=== PATIENT | male | born 1965 | race Caucasian/White ===

== ENCOUNTER 2023-03-20 15:38 | Outpatient (AMB) | payer BC, SELFPAY ==
--- NOTE | 2023-03-20 15:39 | A.OFFVIS_ITS ---
Intake Vital Signs 03/20/23 15:40 Height 6 ft Weight 249 lb BMI 33.8 BP 126/68 Blood Pressure Location Rt brachial Position Sitting Pulse 56 Pulse Source Pulse Oximeter Pulse Oximetry (%) 95 Oxygen Delivery Method Room Air Intake Visit Reasons: Asthma Target Network Analyst Required: No Project Estimator: Project Estimator offered & declined Accompanied by: Spouse Allergies No Known Allergies [No Known Allergies*] Allergy (Unverified 03/20/23 15:44) Medication List - Last Reconciled 03/20/23 by Melany Cohen LPN albuterol sulfate 90 mcg/actuation 2 puffs inhalation Q6H PRN budesonide-formoterol 160-4.5 mcg/actuation (Symbicort) 2 puffs inhalation BID fluticasone propionate 50 mcg/actuation 1 spray intranasal DAILY levothyroxine 50 mcg PO DAILY sertraline 150 mg PO DAILY tamsulosin 0.4 mg PO DAILY HPI Asthma HPI Details John is a pleasant 57 year old male, never smoker, with underlying asthma, BEULAH on CPAP and nasal polyps. He was referred by PCP for pulmonary evaluation. He reports being suboptimally controlled on symbicort and albuterol MDI. He reports intermittent wheezing and dyspnea with moderate exertion. He denies cough or chest tightness. He denies any occupational exposures. He reports minimal seasonal allergies however reports mild to moderate eczema. He denies any pertinent family history. He does admit poor compliance with CPAP and has not followed up with sleep medicine in years. Last sleep study 2014. [facility] Social History (Updated 03/20/23 @ 15:46 by Melany Cohen LPN) Patient Tobacco Use Status: Never used Tobacco Smoked in Last 30 Days: No Review of Systems Const Denies chills, Denies excessive sweating, Denies fever(s), Denies headache(s) and Denies night sweats Eyes Denies dry eyes, Denies irritation and Denies itchy eyes ENT Reports Normal hearing present, Denies headache(s), Denies nasal congestion, Denies nasal discharge, Denies post nasal drip and Denies sore throat Card Denies chest pain, Denies chest pain at rest, Denies chest pain with activity, Denies claudication, Denies leg edema, Denies orthopnea and Denies paroxysmal nocturnal dyspnea Resp Denies chest congestion, Denies cough, Denies excessive phlegm production, Denies pain on inspiration, Denies pain with cough and Denies stridor Musc Denies myalgias Neuro Reports Normal hearing present and Denies headache(s) Endo Denies excessive sweating Kyle/Lymph Denies lymphadenopathy Aller/Immun Denies itchy eyes and Denies seasonal rhinorrhea Physical Exam Vital Signs: Last Vital Signs Pulse 56 03/20/23 15:40 BP 126/68 03/20/23 15:40 Pulse Ox 95 03/20/23 15:40 Oxygen Delivery Method Room Air 03/20/23 15:40 BMI result Body Mass Index 33.8 Const General: cooperative, healthy appearing, comfortable, no acute distress, well developed and alert Nutritional Appearance: obese Orientation/consciousness: patient oriented x3 Limitations: no limitations HEENT Head: Yes normal to inspection, Yes normocephalic and Yes atraumatic Ears: hearing grossly normal bilaterally and external ears normal Eyes General: appearance normal, both eyes and all related structures Eyelids: Yes eyelids normal Sclerae: sclerae normal EOM: EOMs intact bilaterally Neck Neck: Yes normal visual inspection and Yes no lymphadenopathy Lymphatic: no lymphadenopathy noted Chest Chest palpation & inspection: normal inspection of the chest Resp Effort & Inspection: normal respiratory effort, able to speak in complete sentences, no audible wheezes, no cough, no stridor, not tachypneic, no tripod positioning and no use of accessory muscles Auscultation: clear to auscultation bilaterally Cardio Jugular venous distension: no JVD Rate: regular rate Rhythm: regular rhythm Skin Other: warm, dry General skin exam: no rashes or lesions noted Neuro General: patient oriented x3 Cranial nerves: Yes Normal hearing present Cognition (Neuro): normal cognition Gait exam (Neuro): Normal gait present Extrem General: Yes normal to inspection, Yes capillary refill normal, Yes no clubbing, cyanosis or edema and Yes no pedal edema Psych Appearance: grossly normal and well kempt Speech and movement: Normal speech and movement present and Clear speech present Affect: normal affect Attitude: cooperative Thought process: Normal thought process present Thought content: Normal thought content present Insight: Good insight present (Psych) Judgement: Good judgement present (Psych) Assessment & Plan Assessment & Plan (1) Asthma: Code(s): J45.909 - Unspecified asthma, uncomplicated (2) Dyspnea: Code(s): R06.00 - Dyspnea, unspecified (3) Obstructive sleep apnea: Code(s): G47.33 - Obstructive sleep apnea (adult) (pediatric) (4) Central sleep apnea: Code(s): G47.31 - Primary central sleep apnea (5) Daytime somnolence: Code(s): R40.0 - Somnolence Plan John's symptoms are likely related to underlying asthma. Will send for PFT to thoroughly evaluate. Prior PFT from 2017 revealed normal spirometry, RV 126% and mildly decreased DLCO 69%. Patient reports difficulty with compliance using symbicort, will trial breo. Inhaler technique and importance of oral hygiene reviewed. Patient had prior sleep study suggestive of complex sleep apnea with both obstructive and central apneas, AHI of 28 from 2015. Will send for updated in lab sleep study. Will also send for CXR, for ongoing dyspnea with possible further evaluation with chest CT. All questions were answered and patient is in agreement of plan. Will follow up in 3 months to review response to Breo and results, or sooner if needed. Orders: Orders XR chest 2V Today R06.00 - Dyspnea, unspecified PFT pulmonary function test Today J45.909 - Unspecified asthma, uncomplicated RT PSG in-lab sleep study Today G47.31 - Primary central sleep apnea, G47.33 - Obstructive sleep apnea (adult) (pediatric), R40.0 - Somnolence Medications: New albuterol sulfate 90 mcg/actuation 2 puffs inhalation Q6H PRN 1 ea 3RF shortness of breath or wheezing fluticasone furoate-vilanterol 200-25 mcg/dose (Breo Ellipta) 1 inh inhalation DAILY 60 ea 3RF Coding Level of Care Code New Pt Level 4 (64765) Diagnoses Asthma J45.909 Dyspnea R06.00 Obstructive sleep apnea G47.33 Central sleep apnea G47.31 Daytime somnolence R40.0
[2023-03-20 15:40] VITALS: BP 126/68; PULSE 56; O2SAT 95; BMI 33.8
== END 2023-03-20 17:05 | disposition home or self-care (01) ==
PROVIDERS: PCP Internal Medicine; Visit Provider Nurse Practitioner Family
DX: J45.909 Unspecified asthma, uncomplicated (principal); R06.00 Dyspnea, unspecified; G47.33 Obstructive sleep apnea (adult) (pediatric); G47.31 Primary central sleep apnea; R40.0 Somnolence
CPT/HCPCS: 99204

== ENCOUNTER → 2023-03-20 15:38 | Outpatient (BNVA) | payer BC, SELFPAY | PROVIDERS: PCP Internal Medicine; Visit Provider Nurse Practitioner Family ==

== ENCOUNTER → 2023-04-05 20:30 | Outpatient (REF) | payer BC, SELFPAY | LOC: HO.SL 20:30 | PROVIDERS: PCP Internal Medicine; Visit Provider Nurse Practitioner Family | DX: G47.33 Obstructive sleep apnea (adult) (pediatric) (principal); G47.31 Primary central sleep apnea; R40.0 Somnolence | CPT/HCPCS: 95810 ==

== ENCOUNTER → 2023-04-05 23:08 | Outpatient (BNV) | payer BC, SELFPAY | PROVIDERS: PCP Internal Medicine; Visit Provider Internal Medicine | DX: G47.33 Obstructive sleep apnea (adult) (pediatric) (principal) | CPT/HCPCS: 95810 ==

== ENCOUNTER 2023-04-22 10:39 | Outpatient (REF) | payer BC, SELFPAY ==
--- NOTE | 2023-04-22 12:02 | PFT_ITS ---
Indication: Asthma Spirometry [FEV1 to FVC 79%; FEV1 3.45 L; FVC 4.39 L. No significant response to bronchodilators noted. Maximum voluntary ventilation 73% predicted] Lung Volumes [Total lung capacity 85% predicted with an expiratory reserve volume 48% predicted] Diffusion Capacity [DLCO 96% predicted] Comparisons [None] Interpretation [No obstructive nor restrictive ventilatory defects identified. No significant response to bronchodilators noted. Lung volumes are low normal likely secondary to elevated BMI. Diffusing capacity is within normal limits. If asthma is in the differential methacholine challenge may be helpful in assessing for her reactive airways otherwise clinical correlation warranted.] MTDD
== END 2023-04-22 10:40 | disposition home or self-care (01) ==
LOC: HO.RESP 10:39
PROVIDERS: PCP Internal Medicine; Visit Provider Nurse Practitioner Family
DX: J45.909 Unspecified asthma, uncomplicated (principal)
CPT/HCPCS: 94010; 94727; 94729

== ENCOUNTER → 2023-04-22 12:02 | Outpatient (BNV) | payer BC, SELFPAY | PROVIDERS: PCP Internal Medicine; Visit Provider Hospitalist | DX: J45.909 Unspecified asthma, uncomplicated (principal) | CPT/HCPCS: 94060; 94727; 94729 ==

== ENCOUNTER 2023-05-01 09:26 | Outpatient (AMB) | payer BC, SELFPAY ==
--- NOTE | 2023-05-01 09:27 | A.OFFVIS_ITS ---
Intake Intake Visit Reasons: asthma: f/u on results Learning And Development Officer Required: No Allergies No Known Allergies [No Known Allergies*] Allergy (Unverified 05/01/23 09:29) Medication List - Last Reconciled 05/01/23 by Melany Cohen LPN albuterol sulfate 90 mcg/actuation 2 puffs inhalation Q6H PRN fluticasone propionate 50 mcg/actuation 1 spray intranasal DAILY levothyroxine 50 mcg PO DAILY mometasone-formoterol 100-5 mcg/actuation (Dulera) 2 puffs inhalation BID sertraline 150 mg PO DAILY tamsulosin 0.4 mg PO DAILY HPI asthma: f/u on results 2 HPI0 Details John is a pleasant 57 year old male, never smoker, with underlying asthma, BEULAH on CPAP and nasal polyps. Today's visit is to discuss results of in lab sleep study and PFT. At the last visit, he was also started on Dulera for wheezing and dyspnea with minimal improvement in symptoms. Of note, he also reports persistent cough, nasal/chest congestion and occasional wheezing for the past 4-5 days. He reports fatigue and chills, denies fever or sick contacts. [facility] Social History (Updated 05/01/23 @ 09:31 by Melany Cohen LPN) Patient Tobacco Use Status: Never used Tobacco Smoked in Last 30 Days: No Review of Systems Const Denies excessive sweating, Denies fever(s) and Denies night sweats Card Denies chest pain, Denies chest pain at rest, Denies chest pain with activity, Denies claudication, Denies leg edema, Denies orthopnea and Denies paroxysmal nocturnal dyspnea Resp Denies pain on inspiration, Denies pain with cough and Denies stridor Musc Denies myalgias Endo Denies excessive sweating Physical Exam Const General: cooperative and no acute distress Orientation/consciousness: patient oriented x3 Resp Effort & Inspection: normal respiratory effort, able to speak in complete sentences, no audible wheezes and Actively coughing Quality: actively coughing Neuro General: patient oriented x3 Psych Mental Status: mental status grossly normal Speech and movement: Clear speech present Attitude: cooperative Thought process: Normal thought process present Thought content: Normal thought content present Insight: Good insight present (Psych) Judgement: Good judgement present (Psych) Results Reviewed Results Reviewed: Assessment & Plan Assessment & Plan (1) Asthma: Code(s): J45.909 - Unspecified asthma, uncomplicated (2) Dyspnea: Code(s): R06.00 - Dyspnea, unspecified (3) Obstructive sleep apnea: Code(s): G47.33 - Obstructive sleep apnea (adult) (pediatric) (4) Daytime somnolence: Code(s): R40.0 - Somnolence Plan Reviewed PFT which revealed no obstructive nor restrictive ventilatory defects and no significant response to bronchodilators. Lung volumes are low normal likely secondary to elevated BMI. DLCO within normal limits. Reviewed in lab sleep study which revealed moderate to severe BEULAH and mild hypoxia, with recommendation to have an in lab sleep titration study. Will enter order. Patient with suboptimal response to dulera, will increase dose. Prior CXR unremarkable. Will send for chest CT in 4-6 weeks to assess for alternate causes of dyspnea. Patient with acute symptoms of bronchitis, will treat with azithromycin. All questions were answered and patient is in agreement of plan. Will follow up in 3 months to review response to increased dulera and CT results, or sooner if needed. Orders: Orders 2 RT PSG in-lab sleep titration Today G47.33 - Obstructive sleep apnea (adult) (pediatric), R40.0 - Somnolence CT chest wo IV con 6 Weeks R06.00 - Dyspnea, unspecified Medications: New 2 mometasone-formoterol 200-5 mcg/actuation (Dulera) 2 puffs inhalation BID 1 ea 3RF azithromycin For 250 mg dose pack: take 500 mg today (day 1), then 250 mg for 4 days (days 2-5) PO 6 tabs 0RF Discontinued 2 mometasone-formoterol 100-5 mcg/actuation (Dulera) Discontinued Reason: Patient Completed Course 2 puffs inhalation BID 1 ea 3RF Telehealth Telehealth Location of provider rendering services: practice address Location of patient: address on file Patient Identification confirmed using: Name, : Yes Telehealth method: voice only Patient verbally consented to treatment: Yes Patient verbally consented to billing insurance company: Yes Patient informed of any privacy concerns related to visit: Yes Coding Level of Care Code Tele Est Pt Level 4 (71977) Diagnoses Asthma J45.909 Dyspnea R06.00 Obstructive sleep apnea G47.33 Daytime somnolence R40.0 Time Spent (min) 20
== END 2023-05-01 10:36 | disposition home or self-care (01) ==
LOC: HO.HPS 09:26
PROVIDERS: PCP Internal Medicine; Visit Provider Nurse Practitioner Family
DX: J45.909 Unspecified asthma, uncomplicated (principal); G47.33 Obstructive sleep apnea (adult) (pediatric); R40.0 Somnolence
CPT/HCPCS: 99442

== ENCOUNTER → 2023-05-01 09:26 | Outpatient (BNVA) | payer BC, SELFPAY | PROVIDERS: PCP Internal Medicine; Visit Provider Nurse Practitioner Family ==

== ENCOUNTER → 2023-05-19 19:30 | Outpatient (REF) | payer BC, SELFPAY | LOC: HO.SL 19:30 | PROVIDERS: PCP Internal Medicine; Visit Provider Nurse Practitioner Family | DX: G47.33 Obstructive sleep apnea (adult) (pediatric) (principal); R40.0 Somnolence | CPT/HCPCS: 95811 ==

== ENCOUNTER → 2023-05-19 21:01 | Outpatient (BNV) | payer BC, SELFPAY | PROVIDERS: PCP Internal Medicine; Visit Provider Internal Medicine | DX: G47.33 Obstructive sleep apnea (adult) (pediatric) (principal) | CPT/HCPCS: 95811 ==

== ENCOUNTER 2023-06-07 07:22 | Outpatient (REF) | payer BC, SELFPAY ==
--- NOTE | ~2023-06-07 | CT_ITS ---
EXAMINATION: CT CHEST WITHOUT CONTRAST CLINICAL INFORMATION: Dyspnea COMPARISON: None available. TECHNIQUE: Multidetector volumetric CT imaging of the chest was done. Axial MIP volume rendering provided. Sagittal and coronal reformatted images were obtained. This CT examination was performed using dose optimization techniques as appropriate, variously including the following: *Automated exposure control *Adjustment of mA and/or kV according to patient size (this includes techniques or standardized protocols for targeted exams where dose is matched to indication/reason for exam; i.e. extremities or head) *Use of iterative reconstruction technique DLP: 240 mGy-cm FINDINGS: LUNGS/PLEURA: Biapical pleural parenchymal scarring. 2 mm pleural-based nodular focus along the posterior lateral aspect left upper lobe is 08/11/2021). 7 mm nodule anterolateral aspect right lower lobe (series 5, image 321). 4 mm nodular focus along the lateral margin of the right lower lobe (series 5, image 2 mm pleural-based nodular focus along the lateral aspect of the left lower lobe (series 5, image 310). Central airways are patent. No pneumothorax. No large MEDIASTINUM: Heart is not enlarged. No pericardial effusion. Coronary artery calcifications are noted. Aorta is nonaneurysmal and demonstrates atherosclerotic calcifications. Main no enlarged lymph nodes per size criteria. Visualized portions of the thyroid are unremarkable AXILLA: No lymphadenopathy. UPPER ABDOMEN: Decreased hepatic attenuation suggesting hepatic steatosis. Small hiatal hernia. Mild fatty infiltration of the pancreas. OSSEOUS STRUCTURES: Multilevel degenerative changes of the thoracolumbar spine. CT/CT chest wo IV con IMPRESSION: 1. Multiple bilateral pulmonary nodules the largest measuring up to 7 mm. Follow-up as per Fleischner criteria. 2. Decreased hepatic attenuation suggesting hepatic steatosis. 3. Small hiatal hernia. Various management parameters for solitary pulmonary nodules are in the literature. According to the Fleischner Society, recommendations for pulmonary nodules are as follows: According to the UPDATED 2017 Fleischner Society recommendations, the advised follow-up imaging for multiple solid nodules, the largest measuring 6 mm or greater, is: HIGH RISK PATIENT: CT at 3-6 months, then at 18-24 months.
== END 2023-06-07 07:23 | disposition home or self-care (01) ==
LOC: HO.CT 07:22
PROVIDERS: PCP Internal Medicine; Visit Provider Nurse Practitioner Family
DX: R06.00 Dyspnea, unspecified (principal)
CPT/HCPCS: 71250

== ENCOUNTER 2023-11-06 09:13 | Outpatient (AMB) | payer BC, SELFPAY ==
[2023-11-06 09:15] VITALS: BP 110/72; PULSE 55; O2SAT 95; BMI 34.4
--- NOTE | 2023-11-06 09:15 | MHC.OFFVIS ---
Vital Signs 11/06/23 09:15 Height 6 ft Weight 254 lb BMI 34.4 BP 110/72 Blood Pressure Location Rt brachial Position Sitting Pulse 55 Pulse Source Pulse Oximeter Pulse Oximetry (%) 95 Oxygen Delivery Method Room Air Intake Visit Reasons: dyspnea/ CT Follow up Allergies No Known Allergies [No Known Allergies*] Allergy (Unverified 11/06/23 09:19) HPI HPI dyspnea/ CT Follow up: Details: John is a pleasant 58 year old male, never smoker, with underlying asthma, BEULAH on CPAP and nasal polyps. At the last visit, he was started on Dulera for wheezing, dry cough and dyspnea with minimal improvement in symptoms. Today he presents to review in lab titration study and chest CT results. He denies any visits to urgent care or hospitalizations since the last visit. Of note, he has had recent evaluation through [facility], reports not available today. [facility] Social History Patient Tobacco Use Status: Never used Tobacco Review of Systems Const Denies excessive sweating, Denies fever(s) and Denies night sweats ENT Reports Normal hearing present Card Denies chest pain, Denies chest pain at rest, Denies chest pain with activity, Denies claudication, Denies leg edema, Denies orthopnea and Denies paroxysmal nocturnal dyspnea Resp Denies pain on inspiration, Denies pain with cough and Denies stridor Musc Denies myalgias Neuro Reports Normal hearing present Endo Denies excessive sweating Physical Exam Vital Signs: Last Vital Signs Pulse 55 11/06/23 09:15 BP 110/72 11/06/23 09:15 Pulse Ox 95 11/06/23 09:15 Oxygen Delivery Method Room Air 11/06/23 09:15 BMI result Body Mass Index 34.4 Const General: cooperative, healthy appearing, comfortable, no acute distress, well developed and alert Nutritional Appearance: obese Orientation/consciousness: patient oriented x3 Limitations: no limitations HEENT Head: Yes normal to inspection, Yes normocephalic and Yes atraumatic Ears: hearing grossly normal bilaterally and external ears normal Eyes General: appearance normal, both eyes and all related structures Eyelids: Yes eyelids normal Sclerae: sclerae normal EOM: EOMs intact bilaterally Neck Neck: Yes normal visual inspection and Yes no lymphadenopathy Lymphatic: no lymphadenopathy noted Chest Chest palpation & inspection: normal inspection of the chest Resp Effort & Inspection: normal respiratory effort, able to speak in complete sentences, no audible wheezes, no cough, no stridor, not tachypneic, no tripod positioning and no use of accessory muscles Auscultation: diminished lung sounds Cardio Jugular venous distension: no JVD Rate: regular rate Rhythm: regular rhythm Skin Other: warm, dry General skin exam: no rashes or lesions noted Neuro General: patient oriented x3 Cranial nerves: Yes Normal hearing present Cognition (Neuro): normal cognition Gait exam (Neuro): Normal gait present Extrem General: Yes normal to inspection, Yes capillary refill normal, Yes no clubbing, cyanosis or edema and Yes no pedal edema Psych Appearance: grossly normal and well kempt Speech and movement: Normal speech and movement present and Clear speech present Affect: normal affect Attitude: cooperative Thought process: Normal thought process present Thought content: Normal thought content present Insight: Good insight present (Psych) Judgement: Good judgement present (Psych) Results Reviewed Results Reviewed: [address] [place] [id number] [address] Scan Report Signed Patient: John Dean MR#: [id number] : 1965 Acct:[id number] Age/Sex: 57 / M ADM Date: 06/07/23 Loc: HO.CT Attending Dr: Sandi Tabor NP Ordering Physician: Sandi Tabor NP Date of Service: 06/07/23 Procedure(s): CT chest wo IV con Accession Number(s): [id number] cc: TREVOR KIRKLAND MD; Sandi Tabor NP~ EXAMINATION: CT CHEST WITHOUT CONTRAST CLINICAL INFORMATION: Dyspnea COMPARISON: None available. TECHNIQUE: Multidetector volumetric CT imaging of the chest was done. Axial MIP volume rendering provided. Sagittal and coronal reformatted images were obtained. This CT examination was performed using dose optimization techniques as appropriate, variously including the following: *Automated exposure control *Adjustment of mA and/or kV according to patient size (this includes techniques or standardized protocols for targeted exams where dose is matched to indication/reason for exam; i.e. extremities or head) *Use of iterative reconstruction technique DLP: 240 mGy-cm FINDINGS: LUNGS/PLEURA: Biapical pleural parenchymal scarring. 2 mm pleural-based nodular focus along the posterior lateral aspect left upper lobe is 08/11/2021). 7 mm nodule anterolateral aspect right lower lobe (series 5, image 321). 4 mm nodular focus along the lateral margin of the right lower lobe (series 5, image 2 mm pleural-based nodular focus along the lateral aspect of the left lower lobe (series 5, image 310). Central airways are patent. No pneumothorax. No large MEDIASTINUM: Heart is not enlarged. No pericardial effusion. Coronary artery calcifications are noted. Aorta is nonaneurysmal and demonstrates atherosclerotic calcifications. Main no enlarged lymph nodes per size criteria. Visualized portions of the thyroid are unremarkable AXILLA: No lymphadenopathy. UPPER ABDOMEN: Decreased hepatic attenuation suggesting hepatic steatosis. Small hiatal hernia. Mild fatty infiltration of the pancreas. OSSEOUS STRUCTURES: Multilevel degenerative changes of the thoracolumbar spine. CT/CT chest wo IV con IMPRESSION: 1. Multiple bilateral pulmonary nodules the largest measuring up to 7 mm. Follow-up as per Fleischner criteria. 2. Decreased hepatic attenuation suggesting hepatic steatosis. 3. Small hiatal hernia. Various management parameters for solitary pulmonary nodules are in the literature. According to the Fleischner Society, recommendations for pulmonary nodules are as follows: According to the UPDATED 2017 Fleischner Society recommendations, the advised follow-up imaging for multiple solid nodules, the largest measuring 6 mm or greater, is: HIGH RISK PATIENT: CT at 3-6 months, then at 18-24 months. 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 Will send revision of order to [facility]. Patient continues to report suboptimal response to Dulera, will trial Breo. Patient aware to call if symptoms persist. Will also send order for nebulizer and nebulized albuterol solution. He was given a nebulizer in office. Reviewed chest CT results which revealed multiple pulmonary nodules, largest 7 mm. Will send for repeat chest CT in November. 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 All questions were answered and patient is in agreement of plan. Will follow up in 6-8 weeks to review results and response to new inhaler/revision of CPAP therapy. Orders: Orders CT chest wo IV con Today R91.8 - Other nonspecific abnormal finding of lung field Medications: New fluticasone furoate-vilanterol 200-25 mcg/dose (Breo Ellipta) 1 inh inhalation DAILY 60 ea 6RF albuterol sulfate 2.5 mg (3 mL) inhalation Q4-6H PRN 90 mL 3RF shortness of breath or wheezing Discontinued mometasone-formoterol 200-5 mcg/actuation (Dulera) Discontinued Reason: Patient Completed Course 2 puffs inhalation BID 1 ea 3RF Coding Level of Care Code Est Pt Level 4 (75365) Diagnoses Asthma J45.909 Dyspnea R06.00 Obstructive sleep apnea G47.33 Multiple pulmonary nodules R91.8
== END 2023-11-06 10:04 | disposition home or self-care (01) ==
PROVIDERS: PCP Internal Medicine; Visit Provider Nurse Practitioner Family
DX: J45.909 Unspecified asthma, uncomplicated (principal); R06.00 Dyspnea, unspecified; G47.33 Obstructive sleep apnea (adult) (pediatric); R91.8 Other nonspecific abnormal finding of lung field
CPT/HCPCS: 99214

== ENCOUNTER → 2023-11-06 09:13 | Outpatient (BNVA) | payer BC, SELFPAY | PROVIDERS: PCP Internal Medicine; Visit Provider Nurse Practitioner Family ==

== ENCOUNTER 2023-12-05 08:03 | Outpatient (REF) | payer BC, SELFPAY ==
--- NOTE | ~2023-12-05 | CT_ITS ---
EXAMINATION: CT CHEST WITHOUT CONTRAST CLINICAL INFORMATION: Follow-up nodules COMPARISON: 06/07/2023 TECHNIQUE: Multidetector volumetric CT imaging of the chest was done. Axial MIP volume rendering provided. Sagittal and coronal reformatted images were obtained. This CT examination was performed using dose optimization techniques as appropriate, variously including the following: *Automated exposure control *Adjustment of mA and/or kV according to patient size (this includes techniques or standardized protocols for targeted exams where dose is matched to indication/reason for exam; i.e. extremities or head) *Use of iterative reconstruction technique DLP: 259 mGy-cm FINDINGS: LUNGS: Right middle lobe 3 mm nodule (5:259), unchanged. Right lower lobe 7 mm nodule is unchanged (5:305). Left lower lobe subpleural 2 mm nodule is unchanged (5:271). PLEURA: No pleural effusion. MEDIASTINUM: No cardiomegaly. Aorta and pulmonary artery are normal in caliber. No mediastinal adenopathy. Lack of IV contrast limits evaluation for hilar adenopathy. CORONARY ARTERY CALCIFICATION: No coronary artery calcification appreciated. CHEST WALL/AXILLA: No axillary or internal mammary lymphadenopathy. UPPER ABDOMEN: Hepatic steatosis. OSSEOUS STRUCTURES: Unremarkable. CT/CT chest wo IV con IMPRESSION: Bilateral nodules measuring up to 7 mm are unchanged. According to the UPDATED 2017 Fleischner Society recommendations, the advised followup imaging for multiple solid nodules, the largest measuring 6 mm or greater, is: LOW RISK PATIENT: CT at 3-6 months, then consider CT at 18-24 months. HIGH RISK PATIENT: CT at 3-6 months, then at 18-24 months. Electronically signed by: Aiyana James MD 12/16/2023 02:22 PM EDT
== END 2023-12-05 08:04 | disposition home or self-care (01) ==
LOC: HO.CT 08:03
PROVIDERS: PCP Internal Medicine; Visit Provider Nurse Practitioner Family
DX: R91.8 Other nonspecific abnormal finding of lung field (principal)
CPT/HCPCS: 71250

== ENCOUNTER 2023-12-20 10:39 | Outpatient (AMB) | payer BC, SELFPAY ==
[2023-12-20 10:43] VITALS: BP 114/72; PULSE 61; O2SAT 95; BMI 34.2
--- NOTE | 2023-12-20 10:43 | A.OFFVIS_ITS ---
Vital Signs 12/20/23 10:43 Height 6 ft Weight 252 lb 6 oz BMI 34.2 BP 114/72 Blood Pressure Location Lt brachial Position Sitting Pulse 61 Pulse Source Pulse Oximeter Pulse Oximetry (%) 95 Oxygen Delivery Method Room Air Intake Visit Reasons: dyspnea/ CT Follow up Allergies No Known Allergies [No Known Allergies*] Allergy (Unverified 12/20/23 10:47) HPI HPI dyspnea/ CT Follow up: Details: John is a pleasant 58 year old male, never smoker, with underlying asthma, BEULAH on CPAP and nasal polyps. He has been using Dulera with moderate effect. He continues to report intermittent dyspnea and wheezing, not using albuterol. Of note, he was recently treated with prednisone for nasal polyps by ENT. He has been using CPAP therapy with good effect and has been using slightly less than 70%, discussed importance of compliance. Today he presents to review chest CT results. Prior CT revealed multiple pulmonary nodules, largest 7 mm. [facility] Social History Patient Tobacco Use Status: Never used Tobacco Review of Systems Const Denies excessive sweating, Denies fever(s) and Denies night sweats ENT Reports Normal hearing present Card Denies chest pain, Denies chest pain at rest, Denies chest pain with activity, Denies claudication, Denies leg edema, Denies orthopnea and Denies paroxysmal nocturnal dyspnea Resp Denies pain on inspiration, Denies pain with cough and Denies stridor Musc Denies myalgias Neuro Reports Normal hearing present Endo Denies excessive sweating Physical Exam Vital Signs: Last Vital Signs Pulse 61 12/20/23 10:43 BP 114/72 12/20/23 10:43 Pulse Ox 95 12/20/23 10:43 Oxygen Delivery Method Room Air 12/20/23 10:43 BMI result Body Mass Index 34.2 Const General: cooperative, healthy appearing, comfortable, no acute distress, well developed and alert Nutritional Appearance: obese Orientation/consciousness: patient oriented x3 Limitations: no limitations HEENT Head: Yes normal to inspection, Yes normocephalic and Yes atraumatic Ears: hearing grossly normal bilaterally and external ears normal Eyes General: appearance normal, both eyes and all related structures Eyelids: Yes eyelids normal Sclerae: sclerae normal EOM: EOMs intact bilaterally Neck Neck: Yes normal visual inspection and Yes no lymphadenopathy Lymphatic: no lymphadenopathy noted Chest Chest palpation & inspection: normal inspection of the chest Resp Effort & Inspection: normal respiratory effort, able to speak in complete sentences, no audible wheezes, no cough, no stridor, not tachypneic, no tripod positioning and no use of accessory muscles Auscultation: clear to auscultation bilaterally Cardio Jugular venous distension: no JVD Rate: regular rate Rhythm: regular rhythm Skin Other: warm, dry General skin exam: no rashes or lesions noted Neuro General: patient oriented x3 Cranial nerves: Yes Normal hearing present Cognition (Neuro): normal cognition Gait exam (Neuro): Normal gait present Extrem General: Yes normal to inspection, Yes capillary refill normal, Yes no clubbing, cyanosis or edema and Yes no pedal edema Psych Appearance: grossly normal and well kempt Speech and movement: Normal speech and movement present and Clear speech present Affect: normal affect Attitude: cooperative Thought process: Normal thought process present Thought content: Normal thought content present Insight: Good insight present (Psych) Judgement: Good judgement present (Psych) Results Reviewed Results Reviewed: [place] [id number] CT Scan Report Signed Patient: John Dean MR#: [id number] : 1965 Acct:[id number] Age/Sex: 58 / M ADM Date: 12/05/23 Loc: HO.CT Attending Dr: Sandi Tabor NP Ordering Physician: Sandi Tabor NP Date of Service: 12/05/23 Procedure(s): CT chest wo IV con Accession Number(s): [id number] cc: TREVOR KIRKLAND MD; Sandi Tabor NP~ EXAMINATION: CT CHEST WITHOUT CONTRAST CLINICAL INFORMATION: Follow-up nodules COMPARISON: 06/07/2023 TECHNIQUE: Multidetector volumetric CT imaging of the chest was done. Axial MIP volume rendering provided. Sagittal and coronal reformatted images were obtained. This CT examination was performed using dose optimization techniques as appropriate, variously including the following: *Automated exposure control *Adjustment of mA and/or kV according to patient size (this includes techniques or standardized protocols for targeted exams where dose is matched to indication/reason for exam; i.e. extremities or head) *Use of iterative reconstruction technique DLP: 259 mGy-cm FINDINGS: LUNGS: Right middle lobe 3 mm nodule (5:259), unchanged. Right lower lobe 7 mm nodule is unchanged (5:305). Left lower lobe subpleural 2 mm nodule is unchanged (5:271). PLEURA: No pleural effusion. MEDIASTINUM: No cardiomegaly. Aorta and pulmonary artery are normal in caliber. No mediastinal adenopathy. Lack of IV contrast limits evaluation for hilar adenopathy. CORONARY ARTERY CALCIFICATION: No coronary artery calcification appreciated. CHEST WALL/AXILLA: No axillary or internal mammary lymphadenopathy. UPPER ABDOMEN: Hepatic steatosis. OSSEOUS STRUCTURES: Unremarkable. CT/CT chest wo IV con IMPRESSION: Bilateral nodules measuring up to 7 mm are unchanged. According to the UPDATED 2017 Fleischner Society recommendations, the advised followup imaging for multiple solid nodules, the largest measuring 6 mm or greater, is: LOW RISK PATIENT: CT at 3-6 months, then consider CT at 18-24 months. HIGH RISK PATIENT: CT at 3-6 months, then at 18-24 months. Electronically signed by: Aiyana James MD 12/16/2023 02:22 PM EDT RP Dictated By: Aiyana James MD Signed By: <Electronically signed by Aiyana James MD in OV> 12/16/23 1422 DD/ 0815 TD/TT: 12/05/23 0833 Health Information Director: Assessment & Plan Assessment & Plan (1) Asthma: Code(s): J45.909 - Unspecified asthma, uncomplicated Category: Medical (2) Dyspnea: Code(s): R06.00 - Dyspnea, unspecified Category: Medical (3) Obstructive sleep apnea: Code(s): G47.33 - Obstructive sleep apnea (adult) (pediatric) Category: Medical (4) Multiple pulmonary nodules: Code(s): R91.8 - Other nonspecific abnormal finding of lung field Category: Medical Plan At this time feels respiratory symptoms are moderately controlled with Dulera, advised to continue and use albuterol PRN. Reviewed chest CT results which revealed stable nodules at 6 months. Will repeat in one year to assess for stability. All questions were answered and patient is in agreement of plan. Will follow up in 3-6 months or sooner if needed. Orders: Orders CT chest wo IV con 11 Months R91.8 - Other nonspecific abnormal finding of lung field Coding Level of Care Code Est Pt Level 4 (26833) Diagnoses Asthma J45.909 Dyspnea R06.00 Obstructive sleep apnea G47.33 Multiple pulmonary nodules R91.8
== END 2023-12-20 11:47 | disposition home or self-care (01) ==
PROVIDERS: PCP Internal Medicine; Visit Provider Nurse Practitioner Family
DX: J45.909 Unspecified asthma, uncomplicated (principal); R06.00 Dyspnea, unspecified; G47.33 Obstructive sleep apnea (adult) (pediatric); R91.8 Other nonspecific abnormal finding of lung field
CPT/HCPCS: 99214

== ENCOUNTER → 2023-12-20 10:39 | Outpatient (BNVA) | payer BC, SELFPAY | PROVIDERS: PCP Internal Medicine; Visit Provider Nurse Practitioner Family ==

== ENCOUNTER 2024-06-19 09:53 | Outpatient (AMB) | payer BC, SELFPAY ==
[2024-06-19 09:58] VITALS: BP 118/68; PULSE 67; O2SAT 95; BMI 34.0
--- NOTE | 2024-06-19 09:58 | A.OFFVIS_ITS ---
Vital Signs 06/19/24 09:58 Height 6 ft Weight 251 lb BMI 34.0 BP 118/68 Blood Pressure Location Rt brachial Position Sitting Pulse 67 Pulse Source Pulse Oximeter Pulse Oximetry (%) 95 Oxygen Delivery Method Room Air Intake Visit Reasons: dyspnea/ CT Follow up Carpet Weaver Required: No Logistics Analyst: Logistics Analyst offered & declined Accompanied by: Spouse Allergies No Known Allergies [No Known Allergies*] Allergy (Unverified 06/19/24 10:03) Medication List - Last Reconciled 06/19/24 by Melany Cohen LPN albuterol sulfate 90 mcg/actuation 2 puffs inhalation Q6H PRN albuterol sulfate 2.5 mg (3 mL) inhalation Q4-6H PRN fluticasone propionate 50 mcg/actuation 1 spray intranasal DAILY levothyroxine 50 mcg PO DAILY mometasone-formoterol 200-5 mcg/actuation (Dulera) 2 puffs inhalation BID rosuvastatin 10 mg PO DAILY sertraline 150 mg PO DAILY tamsulosin 0.4 mg PO DAILY HPI HPI dyspnea/ CT Follow up: Details: John is a pleasant 58 year old male, never smoker, with underlying asthma, severe BEULAH on CPAP and nasal polyps. He has been using Dulera with moderate effect continuing to report dyspnea and wheezing, not using albuterol. Of note, he has only been using Dulera 1 inhalation BID, instead of 2 inhalation BID. Since the last visit, he has been treated for asthma exacerbation secondary to URI as well as sinus infection with resolution of symotoms. He has reportedlu been using CPAP therapy with good effect however has had difficulties with compliance due to prior infectious processes. At the last visit, we had reviewed titration study which recommended changes to CPAP pressures and recommended BiPAP however patient has not heard back from [facility]. [facility] Social History Patient Tobacco Use Status: Never used Tobacco Review of Systems Const Denies excessive sweating, Denies fever(s) and Denies night sweats ENT Reports Normal hearing present Card Denies chest pain, Denies chest pain at rest, Denies chest pain with activity, Denies claudication, Denies leg edema, Reports dyspnea on exertion, Denies orthopnea and Denies paroxysmal nocturnal dyspnea Resp Denies change in phlegm color, Denies chest congestion, Denies hemoptysis, Denies pain on inspiration, Denies pain with cough, Reports dyspnea on exertion, Denies stridor and Reports wheezing Musc Denies myalgias Neuro Reports Normal hearing present Endo Denies excessive sweating Aller/Immun Reports wheezing Physical Exam Vital Signs: Last Vital Signs Pulse 67 06/19/24 09:58 BP 118/68 06/19/24 09:58 Pulse Ox 95 06/19/24 09:58 Oxygen Delivery Method Room Air 06/19/24 09:58 BMI result Body Mass Index 34.0 Const General: cooperative, healthy appearing, comfortable, no acute distress, well developed and alert Nutritional Appearance: obese Orientation/consciousness: patient oriented x3 Limitations: no limitations HEENT Head: Yes normal to inspection, Yes normocephalic and Yes atraumatic Ears: hearing grossly normal bilaterally and external ears normal Eyes General: appearance normal, both eyes and all related structures Eyelids: Yes eyelids normal Sclerae: sclerae normal EOM: EOMs intact bilaterally Neck Neck: Yes normal visual inspection and Yes no lymphadenopathy Lymphatic: no lymphadenopathy noted Chest Chest palpation & inspection: normal inspection of the chest Resp Effort & Inspection: normal respiratory effort, able to speak in complete sentences, no audible wheezes, no cough, no stridor, not tachypneic, no tripod positioning and no use of accessory muscles Auscultation: clear to auscultation bilaterally Cardio Jugular venous distension: no JVD Rate: regular rate Rhythm: regular rhythm Skin Other: warm, dry General skin exam: no rashes or lesions noted Neuro General: patient oriented x3 Cranial nerves: Yes Normal hearing present Cognition (Neuro): normal cognition Gait exam (Neuro): Normal gait present Extrem General: Yes normal to inspection, Yes capillary refill normal, Yes no clubbing, cyanosis or edema and Yes no pedal edema Psych Appearance: grossly normal and well kempt Speech and movement: Normal speech and movement present and Clear speech present Affect: normal affect Attitude: cooperative Thought process: Normal thought process present Thought content: Normal thought content present Insight: Good insight present (Psych) Judgement: Good judgement present (Psych) Assessment & Plan Assessment & Plan (1) Asthma: Code(s): J45.909 - Unspecified asthma, uncomplicated Category: Medical (2) Dyspnea: Code(s): R06.00 - Dyspnea, unspecified Category: Medical (3) Obstructive sleep apnea: Code(s): G47.33 - Obstructive sleep apnea (adult) (pediatric) Category: Medical (4) Multiple pulmonary nodules: Code(s): R91.8 - Other nonspecific abnormal finding of lung field Category: Medical Plan Advised to increase Dulera to 2 inhalations BID and encouraged use of albuterol PRN. Will resend order for BiPAP therapy to [facility]. Prior chest CT revealed pulmonary nodule <7mm in size. Repeat chest CT to be scheduled in 11/2024. All questions were answered and patient is in agreement of plan. Will follow up in 3 months or sooner if needed. Coding Level of Care Code Est Pt Level 4 (62843) Diagnoses Asthma J45.909 Dyspnea R06.00 Obstructive sleep apnea G47.33 Multiple pulmonary nodules R91.8
== END 2024-06-19 10:27 | disposition home or self-care (01) ==
LOC: HO.HPSW 09:53
PROVIDERS: PCP Internal Medicine; Visit Provider Nurse Practitioner Family
DX: J45.909 Unspecified asthma, uncomplicated (principal); R06.00 Dyspnea, unspecified; G47.33 Obstructive sleep apnea (adult) (pediatric); R91.8 Other nonspecific abnormal finding of lung field
CPT/HCPCS: 99214

== ENCOUNTER → 2024-06-19 09:53 | Outpatient (BNVA) | payer BC, SELFPAY | PROVIDERS: PCP Internal Medicine; Visit Provider Nurse Practitioner Family ==

== ENCOUNTER 2024-11-19 09:31 | Outpatient (REF) | payer BC, SELFPAY ==
--- OUTSIDE RECORDS SUMMARY | 2024-11-13 09:20 | XMS_ITS | Encounter Summary ---
Author Organization [facility] Address [address] [place] [address] Care Team Providers Care Housemaid Name Role Phone Glenna Mccormick MD Primary Care Provider [phone] Reason for Referral * Hospital - Outpatient (Routine) - Closed Specialty Diagnoses / Procedures Referred By Contac t Referred To Contact Gastroenterology Diagnoses Loose stools Family hx of colon cancer History of colon polyps Procedures COLONOSCOPY Anesthesia - MAC; [facility] Abraham Schmid MD [address] [place] [address] Phone: tel: fax: [facility] [address] [place] [address] Phone: tel: Referral ID Status Reason Start Date Expiration Date Visits Re quested Visits Authorized [id number] Closed 11/10/2024 11/10/2025 1 1 Reason for Visit * Hospital - Outpatient (Routine) - Closed Specialty Diagnoses / Procedures Referred By Contac t Referred To Contact Gastroenterology Diagnoses Loose stools Family hx of colon cancer History of colon polyps Procedures COLONOSCOPY Anesthesia - MAC; [facility] Abraham Schmid MD [address] [address] Phone: tel: fax: [facility] [address] [place] [address] Phone: tel: Referral ID Status Reason Start Date Expiration Date Visits Re quested Visits Authorized [id number] Closed 11/10/2024 11/10/2025 1 1 Encounter Details Date Type Department Care Team (Latest Contact Info) Description 11/13/2024 9:20 AM EDT - 11/13/2024 11:59 PM EDT Hospital Encounter [facility] [address] [place] [address] Abraham Schmid MD [address] [place] [phone] Enma Madera CRNA [address] [place] [address] Sidney Moralez MD [address] [place], [place] [id number] Loose stools; Family hx of colon cancer; History of colon polyps Discharge Disposition: Home or Self Care Social History Tobacco Use Types Packs/Day Years Used Date Smoking Tobacco: Never Smokeless Tobacco: Never Alcohol Use Standard Drinks/Week Comments No 0 (1 standard drink = 0.6 oz pur e alcohol) Interpersonal Safety Answer Date Record ed Physical Abuse 11/13/2024 Verbal Abuse 11/13/2024 Sex and Gender Information Value Date Recorded Sex Assigned at Male 11/13/2024 9:16 AM EDT Legal Sex Male 1:49 AM EST Gender Identity Male 11/13/2024 9:16 AM EDT Sexual Orientation Straight 11/13/2024 9: 16 AM EDT documented as of this encounter Last Filed Vital Signs Vital Sign Reading Time Taken Comments Blood Pressure 101/86 11/13/2024 11:06 AM EDT Pulse 59 11/13/2024 11:06 AM EDT Temperature 36.4 C (97.6 F) 11/13/2024 10:50 AM EDT Respiratory Rate 15 11/13/2024 11:06 AM EDT Oxygen Saturation 100% 11/13/2024 11:06 AM EDT Inhaled Oxygen Concentration - - Weight 114 kg (252 lb) 11/13/2024 9:47 AM EDT Height 185.4 cm (6' 1 ) 11/13/2024 9:47 AM EDT Body Mass Index 33.25 11/13/2024 9:47 AM EDT documented in this encounter Discharge Instructions * Attachments The following attachments cannot be sent through Care Everywhere. * Colonoscopy: Post op (Kenyan) * Colon Polyps (Kenyan) * Diverticulosis (Kenyan) documented in this encounter Medications at Time of Discharge budesonide-formo teroL (SYMBICORT) 160-4.5 mcg/actuation inhaler Inhale 1 puff by mouth 2 times daily. 12/31/2021 Dulera 200-5 mcg/actuation inhaler 09/10/2024 levothyroxine (SYNTHROID, LEVOTHROID) 50 mcg tablet 10/07/2024 sertraline (ZOLOFT) 100 mg tablet Take 1 tablet (100 mg total) by mouth. sodium,potassium ,mag sulfates (Suprep Bowel Prep Kit) 17.5-3.13-1.6 gram recon soln bowel prep kit oral solution Take 177ML by mouth for 2 doses. SEE INSTRUCTIONS PROVIDED BY OFFICE. 1 kit 11/10/2024 tamsulosin (FLOMAX) 0.4 mg 24 hr capsule 10/07/2024 albuterol 2.5 mg /3 mL (0.083 %) nebulizer solution 11/06/2023 fluticasone propionate (FLONASE) 50 mcg/actuation nasal spray Administer 2 sprays into affected nostril(s). documented as of this encounter Discharge Disposition Disposition Code Departure Means Destination Home or Self Care documented in this encounter Progress Notes * Kanika Blum RN - 11/13/2024 10:00 AM EDT Problem: Cognitive:Periop Procedure - Minor Goal: Knowledge of disease or condition will improve Outcome: Progressing Problem: Sensory:Periop Procedure - Minor Goal: Demonstrates/reports adequate pain control Outcome: Progressing documented in this encounter H&P Notes * Abraham Schmid MD - 11/13/2024 10:00 AM EDT Pre-Op Diagnosis: Diarrhea, Hx polyps, Fam history of colon cancer Proposed Procedure: Colon Performing Surgeon/MD/Endoscopist: Abraham Schmid MD Medical/History: Past Medical History: Diagnosis Date COPD (chronic obstructive pulmonary disease) ([facility] V24, [facility] V28) Past Surgical History: Procedure Laterality Date HAND SURGERY Left KNEE SURGERY Right Medications/Allergies: Prior to Admission medications Medication Sig Start Date End Date Taking? Authorizing Provider budesonide-formoteroL (SYMBICORT) 160-4.5 mcg/actuation inhaler Inhale 1 puff by mouth 2 times daily. 12/31/21 Yes Historical Provider, Dulera 200-5 mcg/actuation inhaler 09/10/24 Yes Historical Provider, levothyroxine (SYNTHROID, LEVOTHROID) 50 mcg tablet 10/07/24 Yes Historical Provider, sertraline (ZOLOFT) 100 mg tablet Take 1 tablet (100 mg total) by mouth. Yes Historical Provider, sodium,potassium,mag sulfates (Suprep Bowel Prep Kit) 17.5-3.13-1.6 gram recon soln bowel prep kit oral solution Take 177ML by mouth for 2 doses. SEE INSTRUCTIONS PROVIDED BY OFFICE. 11/10/24 Yes Abraham Schmid MD tamsulosin (FLOMAX) 0.4 mg 24 hr capsule 10/07/24 Yes Historical Provider, albuterol 2.5 mg /3 mL (0.083 %) nebulizer solution 11/06/23 Historical Provider, fluticasone propionate (FLONASE) 50 mcg/actuation nasal spray Administer 2 sprays into affected nostril(s). Patient not taking: Reported on 11/05/2024 Historical ProviderMD fluticasone-salmeterol (ADVAIR DISKUS) 250-50 mcg/dose diskus inhaler Inhale 1 puff by mouth. Patient not taking: Reported on 11/05/2024 11/13/24 Historical Provider, Patient Age:59 y.o. Vitals: Vitals: 11/13/24 0947 BP: (!) 143/84 Pulse: 59 Resp: 18 Temp: 36.4 ??C (97.6 ??F) SpO2: 97% Physical Exam: Mental Status: Clear HEENT: WNL Heart: WNL Lungs: WNL Abdomen: WNL Extremities: WNL Neuro: WNL Labs: Imaging: Diagnosis/Plan: Colonoscopy documented in this encounter Procedure Notes * Jered Loza RN - 11/13/2024 10:00 AM EDT PATIENT TOLERATED A DRINK AND A SNACK. MD DISCUSSED RESULT WITH PATIENT. FALL RISK REVIEWED. ALL PERSONAL EFFECTS RETURNED TO PATIENT. documented in this encounter Plan of Treatment Not on file documented as of this encounter Procedures Procedure Name Priority Date/Time Associated Diagnosis Comments COLONOSCOPY Routine 11/13/2024 10:45 AM EDT Loose stools Family hx of colon cancer History of colon polyps TISSUE EXAM Routine 11/13/2024 10:35 AM EDT Loose stools Family hx of colon cancer History of colon polyps documented in this encounter Results * COLONOSCOPY Anesthesia - MAC; [facility] (11/13/2024 10:45 AM EDT) Anatomical Region Laterality Modality Other 11/13/2024 10:2 7 AM EDT Impressions 11/13/2024 10:48 AM EDT - One 10 mm polyp in the cecum, removed with a hot snare. Resected and retrieved. Clips were placed. 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 - Diverticulosis in the sigmoid colon. - The examination was otherwise normal on direct and retroflexion views. Recommendation: - Await pathology results. - Repeat colonoscopy in 2 years for surveillance. Narrative 11/13/2024 10:48 AM EDT [facility] Patient Name: John Dean Procedure Date: 11/13/2024 10:27 AM Date of : 1965 Age: 59 Room: ROOM 14 Gender: Male Note Status: Finalized Attending MD: Abraham Schmid MD, Procedure Date No Time: 11/13/2024 Procedure: Colonoscopy Indications: Screening in patient at increased risk: Family history of 1st-degree relative with colorectal cancer before age 60 years, High risk colon cancer surveillance: Personal history of colonic polyps, Incidental - Chronic diarrhea Providers: Abraham Schmid MD Referring MD: Abraham Schmid MD Medicines: Propofol per Anesthesia Complications: No immediate complications. Estimated Blood Loss: Estimated blood loss was minimal. Procedure: Pre-Anesthesia Assessment: - ASA Grade Assessment: II - A patient with mild systemic disease. After I obtained informed consent, the scope was passed under direct vision. Throughout the procedure, the patient's blood pressure, pulse, and oxygen saturations were monitored continuously.The Olympus Pediatric Colonoscope was introduced through the anus and advanced to the cecum, identified by appendiceal orifice and ileocecal valve. The colonoscopy was performed without difficulty. The patient tolerated the procedure well. The quality of the bowel preparation was good. Findings: The perianal and digital rectal examinations were normal. A 10 mm polyp was found in the cecum. The polyp was sessile. The polyp was removed with a hot snare. Resection and retrieval were complete. To prevent bleeding after the polypectomy, two hemostatic clips were successfully placed. 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 There was no bleeding at the end of the procedure. Multiple diverticula were found in the sigmoid colon. The exam was otherwise without abnormality on direct and retroflexion views. Procedure Code(s): --- Professional --- 65126, Colonoscopy, flexible; with removal of tumor(s), polyp(s), or other lesion(s) by snare technique Diagnosis Code(s): --- Professional --- Z80.0, Family history of malignant neoplasm of digestive organs D12.0, Benign neoplasm of cecum K57.30, Diverticulosis of large intestine without perforation or abscess without bleeding Z86.010, Personal history of colonic polyps CPT copyright 2020 [employer]. All rights reserved. The codes documented in this report are preliminary and upon sausage inspector review may be revised to meet current compliance requirements. Abraham Schmid MD 11/13/2024 10:48:06 AM This report has been signed electronically.Abraham Schmid MD Number of Addenda: 0 Note Initiated On: 11/13/2024 10:27 AM Scope In: Scope Out: Endoscopy Department at [facility] - [address] [place] [phone] Procedure Note Abraham Schmid MD - 11/13/2024 [facility] Patient Name: John Dean Procedure Date: 11/13/2024 10:27 AM Date of : 1965 Age: 59 Room: ROOM 14 Gender: Male Note Status: Finalized Attending MD: Abraham Schmid MD, Procedure Date No Time: 11/13/2024 Procedure: Colonoscopy Indications: Screening in patient at increased risk: Familyhistory of 1st-degree relative with colorectal cancerbefore age 60 years, High risk colon cancer surveillance: Personal history of colonic polyps, Incidental - Chronic diarrhea Providers: Abraham Schmid MD Referring MD: Abraham Schmid MD Medicines: Propofol per Anesthesia Complications: No immediate complications. Estimated Blood Loss: Estimated blood loss was minimal. Procedure: Pre-Anesthesia Assessment: - ASA Grade Assessment: II - A patient with mild systemic disease. After I obtained informed consent, the scope was passed under direct vision. Throughout theprocedure, the patient's blood pressure, pulse, and oxygen saturations were monitored continuously.The Olympus Pediatric Colonoscope was introduced through theanus and advanced to the cecum, identified byappendiceal orifice and ileocecal valve. The colonoscopy was performed without difficulty. The patient tolerated the procedure well. The quality of the bowel preparation was good. Findings: The perianal and digital rectal examinations were normal. A 10 mm polyp was found in the cecum. The polyp was sessile. The polyp was removed with a hot snare. Resection and retrieval were complete. To prevent bleeding after the polypectomy, two hemostaticclips were successfully placed. 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 There was no bleeding at the end of the procedure. Multiple diverticula were found in the sigmoidcolon. The exam was otherwise without abnormality ondirect and retroflexion views. Procedure Code(s): --- Professional --- 70541, Colonoscopy, flexible; with removal of tumor(s), polyp(s), or other lesion(s) by snare technique Diagnosis Code(s): --- Professional --- Z80.0, Family history of malignant neoplasm of digestive organs D12.0, Benign neoplasm of cecum K57.30, Diverticulosis of large intestine without perforation or abscess without bleeding Z86.010, Personal history of colonic polyps CPT copyright 2020 [employer]. All rights reserved. The codes documented in this report are preliminary and upon sausage inspector reviewmay be revised to meet current compliance requirements. Abraham Schmid MD 11/13/2024 10:48:06 AM This report has been signed electronically.Abraham Schmid MD Number of Addenda: 0 Note Initiated On: 11/13/2024 10:27 AM Scope In: Scope Out: Endoscopy Department at [facility] - [address] [place] [id number] IMPRESSION: - One 10 mm polyp in the cecum, removed with a hot snare. Resected and retrieved. 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 - Diverticulosis in the sigmoid colon. - The examination was otherwise normal on directand retroflexion views. Recommendation: - Await pathology results. - Repeat colonoscopy in 2 years for surveillance. us Abraham Schmid MD GI~PROCEDURE ORDERABLES Fin al Result * Tissue exam (11/13/2024 10:35 AM EDT) Final Diagnosis A. Polyp, cecum, polypectomy: - Sessile serrated lesion, negative for dysplasia. B. Colon, random sites, biopsy: - Colonic mucosa without diagnostic histopathologic change. - No significant increase in intraepithelial lymphocytes and no thickening of the subepithelial collagen plate is identified. 11/16/2024 10:47 AM EDT [facility] Gross Description A. Large Intestine, Cecum, polyp x1: Labeled polyp x 1 colon cecum . Received in formalin are two soft to friable seth-red friable polypoid tissues measuring 0.5 cm and 2.0 cm in greatest diameter, the largest of which is elongate and subsequently bisected, admixed with fecal/debris. The specimen is wrapped in paper and submitted in entirety in one cassette, three pieces, multiple levels. B. Colon, random bx's: Labeled random co colon . Received in formalin are five soft to friable, seth-red tissue fragments ranging from 0.15 cm to 0.35 cm in greatest diameter, which are wrapped in paper and submitted in toto in one cassette, five pieces, multiple levels. TS 11/16/2024 10:47 AM EDT [facility] Disclaimer Unless otherwise specified, all tissue is 10% NB formalin fixed and paraffin embedded. 11/16/2024 10:47 AM EDT [facility] Tissue Colon structure / Unknown 11/13/2024 10:35 AM EDT 11/13/2024 11:59 AM EDT Tissue specimen (specimen) Colon structure / Unknown 11/13/2024 10:35 AM EDT 11/13/2024 11:59 AM EDT us Abraham Schmid MD LAB PATHOLOGY ORDERABLES Fi nal Result [facility] [address] [place] [address], documented in this encounter Visit Diagnoses Diagnosis Loose stools Abnormal feces Family hx of colon cancer Family history of malignant neoplasm of gastrointestinal tract History of colon polyps documented in this encounter Discontinued Medications Medication Sig Discontinue Reason Start Date End Da te fluticasone-salmeterol (ADVAIR DISKUS) 250-50 mcg/dose diskus inhaler Inhale 1 puff by mouth. Formulary change 11/13/2024 documented as of this encounter Historical Medications * This list may reflect changes made after this encounter. budesonide-formot Cameron (SYMBICORT) 160-4.5 mcg/actuation inhaler Inhale 1 puff by mouth 2 times daily. 12/31/2021 added in this encounter Orders Discharge Count Last Ordered Date First Orde red Date DISCHARGE PATIENT 1 11/13/2024 documented in this encounter Care Teams Housemaid Relationship Specialty Start Date End Date Glenna Mccormick MD [address] [place] [id number] PCP - General Internal Medicine 11/13/24 documented as of this encounter
--- NOTE | ~2024-11-19 | CT_ITS ---
EXAMINATION: CT CHEST WITHOUT CONTRAST CLINICAL INFORMATION: Other nonspecific abnormal finding of lung field. Follow-up nodules. COMPARISON: 12/05/2023, 06/07/2023. TECHNIQUE: Multidetector volumetric CT imaging of the chest was done. Axial MIP volume rendering provided. Sagittal and coronal reformatted images were obtained. This CT examination was performed using dose optimization techniques as appropriate, variously including the following: *Automated exposure control *Adjustment of mA and/or kV according to patient size (this includes techniques or standardized protocols for targeted exams where dose is matched to indication/reason for exam; i.e. extremities or head) *Use of iterative reconstruction technique FINDINGS: NODULES: 3 mm right middle lobe nodule is stable and unchanged, with pleural tag and likely an intrapulmonary lymph node (series 4, image 68). 7 mm right lower lobe nodule abutting the major fissure is stable and unchanged and most likely an intrapulmonary lymph node (series 4, image 81). No new or enlarging pulmonary nodule. LUNGS: The lungs are clear bilaterally. There is no interstitial abnormality or abnormal opacity. No consolidation. Small airways are normal. Central airways are patent. No pleural effusion or pneumothorax. MEDIASTINUM: Normal-appearing thyroid. No lymphadenopathy or mass within the mediastinum. Aorta is mildly calcified but normal in caliber and course. Main pulmonary artery is normal. The heart size is normal. There is no pericardial effusion. The esophagus is normal in appearance. There is likely a tiny type I hiatus hernia. CORONARY ARTERY CALCIFICATION: Mild three-vessel coronary calcification. AXILLA: No lymphadenopathy or mass. UPPER ABDOMEN: There is diffuse fatty infiltration of the liver. There is no suspicious liver lesion. There is focal fatty sparing peripherally in segment 8. There is mild diverticulosis of the imaged colon. Remainder of the imaged upper abdominal contents appear normal. OSSEOUS STRUCTURES: No suspicious lytic or blastic bone lesions. No acute finding. CT/CT chest wo IV con IMPRESSION: 1. A few stable pulmonary nodules measuring up to 7 mm, most consistent with intrapulmonary lymph nodes. These are benign. One-year follow-up only recommended in a high-risk patient. No new or enlarging pulmonary nodule. 2. The lungs are clear without evidence of active disease. 3. Fatty infiltration of the liver. 4. Additional ancillary findings as discussed in the body of the report. Electronically signed by: Vinicius Donald MD 11/19/2024 10:07 AM EDT
--- OUTSIDE RECORDS SUMMARY | 2024-11-19 10:35 | XMS_ITS | Clinical Summary ---
Author Organization [facility] Address [address] [place] [address] Care Team Providers Care Shredded Filler Machine Wrapper Layer Name Role Phone Unknown, Primary Care Provider Unavailabl e Social History Tobacco Use Types Packs/Day Years Used Date Smoking Tobacco: Never Assessed Sex and Gender Information Value Date Recorded Sex Assigned at Not on file Gender Identity Not on file Sexual Orientation Not on file Job Start Date Occupation Industry Not on file Not on file Not on file Plan of Treatment Health Maintenance Due Date Last Done Comments Hepatitis C Screening 1965 Depression Screening 1975 Preventative Health Evaluation 07/12/1981 DTap / Tdap / Td (1 - Tdap) 07/12/1982 Colon Cancer Screening (Colonoscopy) 07/12/2008 Shingrix-Zoster Vaccine (1 o f 2) 07/12/2013 COVID-19 Vaccine (2023-2 5 season) 2023 04/04/2021, 06/16/2020, 05/26/2020 Influenza Vaccine (#1) 2024 RSV Adult > 60+ Yrs or (1 - 1-dose 75+ series) 07/12/2038 Hepatitis B Vaccines Aged Out No long er eligible based on patient's age to complete this topic Pneumococcal Vaccine Aged Out No long er eligible based on patient's age to complete this topic RSV Ped < 20 months Aged Out No longe r eligible based on patient's age to complete this topic Care Teams Shredded Filler Machine Wrapper Layer Relationship Specialty Start Date End Date Unknown, PCP - General 07/18/23
--- OUTSIDE RECORDS SUMMARY | 2024-11-19 10:35 | XMS_ITS | Clinical Summary ---
Author Organization [facility] Address [address] [place] [address] Care Team Providers Care Hospital Medical Biller Name Role Phone Russel Macias MD Primary Care Provider Medications Levothyroxine Sodium (SYNTHROID, LEVOTHROID) 50 MCG tablet 60 0 11/13/2021 Active Budesonide-Formo terol Fumarate (SYMBICORT) 160-4.5 MCG/ACT inhaler INHALE 1 PUFF BY MOUTH TWICE DAILY 11 0 12/31/2021 Active Azithromycin (ZITHROMAX) 250 MG tablet 6 0 01/02/2022 Active Amoxicillin-Pot Clavulanate (AUGMENTIN) 875-125 MG per tablet 14 0 01/08/2022 Active Sertraline HCl (ZOLOFT) 100 MG tablet TAKE 1 AND 1/2 TABLETS BY MOUTH EVERY DAY 135 0 02/12/2022 Active COVID-19 At Home Antigen Test (efectivoxaxNOW COVID-19 Ag Home Test) Kit 8 0 02/19/2022 Active Doxycycline Hyclate (VIBRAMYCIN) 100 MG capsule 28 0 02/19/2022 Active predniSONE (DELTASONE) 20 MG tablet 9 0 02/19/2022 Active predniSONE (DELTASONE) 10 MG tablet Take 5 tabs qd for 3 days, take 4 tabs qd for 3 days, take 3 tabs qd for 3 days, take 2 tabs qd for 3 days, take 1 tab qd for 3 days 45 0 03/12/2022 Active Cefdinir (OMNICEF) 300 MG capsule TAKE 1 CAPSULE EVERY 12 HOURS DAILY. 28 0 03/12/2022 Active Active Problems Problem Noted Date Diagnosed Date Nasal polyps 03/12/2022 Chronic pansinusitis 03/12/2022 Immunizations Immunization Administration Dates Next Due COVID-19, mRNA (Pfizer Pre F all 2022) Monovalent, 30 mcg/0.3 ml 04/04/2021,06/16/2020,05/26/2020 Td (adult), adsorbed 08/21/2018 Social History Tobacco Use Types Packs/Day Years Used Date Smoking Tobacco: Never Assessed Sex and Gender Information Value Date Recorded Sex Assigned at Not on file Legal Sex Male 10:52 PM EDT Gender Identity Not on file Sexual Orientation Not on file Plan of Treatment Health Maintenance Due Date Last Done Comments Hepatitis C Screening 1965 Colon Cancer Screening 07/12/2008 Pneumococcal 50+ years (1 of 1 - PCV) 07/12/2013 Zoster (Shingrix) (1 of 2) 07/12/2013 DTaP/Tdap/Td (1 - Tdap) 08/22/2018 08/21/2018 COVID-19 Vaccine (4 - 2023-2 5 season) 2023 04/04/2021, 06/16/2020, 05/26/2020 Influenza (#1) 2024 RSV (1 - 1-dose 75+ series) 07/12/2038 HPV Vaccine (No Doses Required) Completed Hep A Aged Out No longer eligi ble based on patient's age to complete this topic Hep B Aged Out No longer eligi ble based on patient's age to complete this topic Hib Aged Out No longer eligi ble based on patient's age to complete this topic Meningococcal ACWY Aged Out No longer eligible based on patient's age to complete this topic Zoster (Zostavax) Discontinued Care Teams Hospital Medical Biller Relationship Specialty Start Date End Date Russel Macias MD [address] [facility] [address] [place] [address] PCP - General 10/29/22
--- OUTSIDE RECORDS SUMMARY | 2024-11-19 10:35 | XMS_ITS ---
Author Name [facility] Organization Unknown History of Medication Use Medication Directions Dispensed Refills Start Date End Date Stat predniSONE 10 MG Oral Tablet predniSONE 10 MG Oral TabletTake 5 tabs qd for 3 days, take 4 tabs qd for 3 days, take 3 tabs qd for 3 days, take 2 tabs qd for 3 days, take 1 tab qd for 3 days Quantity: 45 Refills: Russel Hoff M.D. Start : [id number] 03/12/2022 completed Encounters Encounter Type Encounter Reason Primary Diagnosis Location Date Ambulatory [facility] 01/24 Care Team Organization Name Specialty Phone Email Start Date End Da [facility] 02/20/2022 11/28/2023
--- OUTSIDE RECORDS SUMMARY | 2024-11-19 10:35 | XMS_ITS | Clinical Summary ---
Author Organization [facility] Address [address] [place] [address] Phone Care Team Providers Care Invasive Cardiologist Name Role Phone Glenna Mccormick MD Primary Care Provider [phone] Allergies No known active allergies Medications albuterol 2.5 mg /3 mL (0.083 %) nebulizer solution 4 Active levothyroxine (SYNTHROID, LEVOTHROID) 50 mcg tablet 5 Active fluticasone propionate (FLONASE) 50 mcg/actuation nasal spray Administer 2 sprays into affected nostril(s). Active Dulera 200-5 mcg/actuation inhaler 5 Active sertraline (ZOLOFT) 100 mg tablet Take 1 tablet (100 mg total) by mouth. Active tamsulosin (FLOMAX) 0.4 mg 24 hr capsule 5 Active sodium,potassi um,mag sulfates (Suprep Bowel Prep Kit) 17.5-3.13-1.6 gram recon soln bowel prep kit oral solution Take 177ML by mouth for 2 doses. SEE INSTRUCTIONS PROVIDED BY OFFICE. 1 kit 5 Active budesonide-for moteroL (SYMBICORT) 160-4.5 mcg/actuation inhaler Inhale 1 puff by mouth 2 times daily. 2 Active fluticasone-sa lmeterol (ADVAIR DISKUS) 250-50 mcg/dose diskus inhaler Inhale 1 puff by mouth. 025 Discontin ued(Stuu ayden change) Active Problems Problem Noted Date Diagnosed Date Colon polyps 11/05/2024 GERD (gastroesophageal reflux disease) 9 Asthma 12/17/2017 Cough 12/17/2017 Depression 12/17/2017 Hypothyroidism 12/17/2017 Encounters Date Type Department Care Team Description 11/13/2024 10:21 AM EDT Anesthesia Event [facility] [address] [place] [phone] Sidney Moralez MD Pierce, Trudy A, CRNA 11/13/2024 9:20 AM EDT - 11/13/2024 11:59 PM EDT Hospital Encounter [facility] [address] [place] [phone] Abraham Schmid MD Pierce, Trudy A, CRNA Spencer, Mark A, MD Loose stools; Family hx of colon cancer; History of colon polyps Discharge Disposition: Home or Self Care 11/05/2024 9:20 AM EDT Consult Gastroenterology - [address] [phone] Oriana Valdes PA Colon cancer screening (Primary Dx); Loose stools 11/05/2024 Telephone Gastroenterology - [address] [phone] Abraham Schmid MD 09/15/2024 Telephone Gastroenterology - [address] [phone] Abraham Schmid MD from Last 3 Months Immunizations Name Administration Dates Next Due Pfizer SARS-CoV-2 COVID-19, mRNA, LNP-S, preservative free 04/04/2021,06/16/2020,05/26/2020 Surgical History Surgery Date Site/Laterality Comments HAND SURGERY Left KNEE SURGERY Right Medical History Medical History Date Comments COPD (chronic obstructive pulmonary disease) (CM S/HCC V24, CMS/HCC V28) Family History Medical History Relation Name Comments Colon cancer Brother 1 Ed Colon polyps Brother 2 Coronary artery disease Father Colon polyps Mother Hypertension Mother Hypothyroidism Mother cerebrovascular accident Sister Relation Name Status Comments Brother 1 Ed Brother 2 Alive Father Mother Sister Social History Tobacco Use Types Packs/Day Years [...] Orientation Straight 11/13/2024 9: 16 AM EDT Obstetrics History Last Filed Vital Signs Vital Sign Reading [...] Mass Index 33.25 11/13/2024 9:47 AM EDT Plan of Treatment Health Maintenance Due Date Last Done Comments Pneumococcal Vaccine: 50+ Years (1 of 2 - PCV) 07/12/1982 Zoster Vaccines (1 of 2) 07/12/2013 Cholesterol Screening (Lipid Panel) 02/25/2022 HIV Screening 02/25/2022 Hepatitis C Screening 02/25/2022 Social Influencers of Health Screening 02/25/2022 RSV Immunization Adult Patients (1 - Risk 60-74 years 1-dose series) 2023 COVID-19 Vaccine (4 - 2023-2 5 season) 2023 04/04/2021, 06/16/2020, 05/26/2020 Depression Screening 03/25/2024 Influenza Vaccine (#1) 2024 Colorectal Cancer Screening: Colonoscopy 11/13/2026 11/13/2024, 11/04/2024 DTaP,Tdap,and Td Vaccines (2 - Td or Tdap) 08/21/2028 08/21/2018 HIB Vaccines Aged Out No longer eligi ble based on patient's age to complete this topic HPV Vaccines Aged Out No longer eligi ble based on patient's age to complete this topic Hepatitis A Vaccines Aged Out No long er eligible based on patient's age to complete this topic Hepatitis B Vaccines Aged Out No long er eligible based on patient's age to complete this topic IPV Vaccines Aged Out No longer eligi ble based on patient's age to complete this topic MMR Vaccines Aged Out No longer eligi ble based on patient's age to complete this topic Meningococcal ACWY Vaccine Aged Out N o longer eligible based on patient's age to complete this topic Meningococcal B Vaccine Aged Out No l onger eligible based on patient's age to complete this topic RSV Immunization Patients Under 20 months Aged Out No longer eligible b ased on patient's age to complete this topic Varicella Vaccines Aged Out No longer eligible based on patient's age to complete this topic Procedures Procedure Name Priority Date/Time Associated Diagnosis Comments COLONOSCOPY Routine 11/13/2024 10:45 AM EDT Loose stools Family hx of colon cancer History of colon polyps TISSUE EXAM Routine 11/13/2024 10:35 AM EDT Loose stools Family hx of colon cancer History of colon polyps COLONOSCOPY Routine 11/04/2024 2:51 PM EDT from Last 3 Months Results * COLONOSCOPY Anesthesia - MAC; [facility] ENDOSCOPY (11/13/2024 10:45 AM EDT) Only the most recent of2 resultswithin the time period is included. Anatomical Region Laterality Modality Other 11/13/2024 10:2 7 AM EDT Impressions 11/13/2024 10:48 AM EDT - One 10 mm polyp in the cecum, removed with a hot snare. Resected and retrieved. Clips were placed. 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 - Diverticulosis in the sigmoid colon. - The examination was otherwise normal on direct and retroflexion views. Recommendation: - Await pathology results. - Repeat colonoscopy in 2 years for surveillance. Narrative 11/13/2024 10:48 AM EDT [facility] GI Patient Name: John Dean Procedure [...] two hemostatic clips were successfully placed. 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 There was no bleeding at the end of the procedure. Multiple diverticula were found in the sigmoid colon. The exam was otherwise without abnormality on direct and retroflexion views. Procedure Code(s): --- Professional --- 27967, Colonoscopy, flexible; with removal of tumor(s), polyp(s), or other lesion(s) by snare technique Diagnosis Code(s): --- Professional --- Z80.0, Family history of malignant neoplasm of digestive organs D12.0, Benign neoplasm of cecum K57.30, Diverticulosis of large intestine without perforation or abscess without bleeding Z86.010, Personal history of colonic polyps CPT copyright 2020 [employer]. All rights reserved. The codes documented in this report are preliminary and upon refinery operator helper crude unit review may be revised to meet current compliance requirements. Abraham Schmid MD 11/13/2024 10:48:06 AM This report has been signed electronically.Abraham Schmid MD Number of Addenda: 0 Note Initiated On: 11/13/2024 10:27 AM Scope In: Scope Out: Endoscopy Department at [facility] - [address] [place] [phone] Procedure Note Abraham Schmid MD - 11/13/2024 [facility] GI Patient Name: John Dean Procedure [...] polypectomy, two hemostaticclips were successfully placed. 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 There was no bleeding at the end of the procedure. Multiple diverticula were found in the sigmoidcolon. The exam was otherwise without abnormality ondirect and retroflexion views. Procedure Code(s): --- Professional --- 08423, Colonoscopy, flexible; with removal of tumor(s), polyp(s), or other lesion(s) by snare technique Diagnosis Code(s): --- Professional --- Z80.0, Family history of malignant neoplasm of digestive organs D12.0, Benign neoplasm of cecum K57.30, Diverticulosis of large intestine without perforation or abscess without bleeding Z86.010, Personal history of colonic polyps CPT copyright 2020 [employer]. All rights reserved. The codes documented in this report are preliminary and upon refinery operator helper crude unit reviewmay be revised to meet current compliance requirements. Abraham Schmid MD 11/13/2024 10:48:06 AM This report has been signed electronically.Abraham Schmid MD Number of Addenda: 0 Note Initiated On: 11/13/2024 10:27 AM Scope In: Scope Out: Endoscopy Department at [facility] - [address] [place] [phone] IMPRESSION: - One 10 mm polyp in the cecum, removed with a hot snare. Resected and retrieved. 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 - Diverticulosis in the sigmoid colon. - The examination was otherwise normal on directand retroflexion views. Recommendation: - Await pathology results. - Repeat colonoscopy in 2 years for surveillance. Abraham Schmid MD GI~PROCEDURE ORDERABLES Fin al Result * Tissue exam (11/13/2024 10:35 AM EDT) Final Diagnosis A. Polyp, cecum, polypectomy: - Sessile serrated lesion, negative for dysplasia. B. Colon, random sites, biopsy: - Colonic mucosa without diagnostic histopathologic change. - No significant increase in intraepithelial lymphocytes and no thickening of the subepithelial collagen plate is identified. 11/16/2024 10:47 AM EDT [facility] Gross Description A. Large Intestine, [...] multiple levels. TS 11/16/2024 10:47 AM EDT [facility] Disclaimer Unless otherwise specified, all tissue is 10% NB formalin fixed and paraffin embedded. 11/16/2024 10:47 AM EDT [facility] Tissue Colon structure / Unknown 11/13/2024 10:35 AM EDT 11/13/2024 11:59 AM EDT Tissue specimen (specimen) Colon structure / Unknown 11/13/2024 10:35 AM EDT 11/13/2024 11:59 AM EDT Abraham Schmid MD LAB PATHOLOGY ORDERABLES Fi nal Result [facility] [address] [place] [address], from Last 3 Months Insurance [facility] Care Teams Invasive Cardiologist Relationship Specialty Start Date End Date Glenna Mccormick MD [address] [place] [address] PCP - General Internal Medicine 11/13/24
== END 2024-11-19 09:32 | disposition home or self-care (01) ==
LOC: HO.CT 09:31
PROVIDERS: PCP Internal Medicine; Visit Provider Nurse Practitioner Family
DX: R91.8 Other nonspecific abnormal finding of lung field (principal)
CPT/HCPCS: 71250

== ENCOUNTER → 2024-11-19 09:33 | Outpatient (BNV) | payer BC, SELFPAY | PROVIDERS: PCP Internal Medicine; Visit Provider Radiology Diagnostic Radiology | DX: R91.8 Other nonspecific abnormal finding of lung field (principal) | CPT/HCPCS: 71250 ==

== ENCOUNTER 2024-11-27 09:46 | Outpatient (AMB) | payer BC, SELFPAY ==
[2024-11-27 09:49] VITALS: BP 108/74; PULSE 55; O2SAT 96; BMI 34.2
--- NOTE | 2024-11-27 09:49 | A.OFFVIS_ITS ---
Vital Signs 11/27/24 09:49 Height 6 ft Weight 252 lb 2 oz BMI 34.2 BP 108/74 Blood Pressure Location Lt brachial Position Sitting Pulse 55 Pulse Source Pulse Oximeter Pulse Oximetry (%) 96 Oxygen Delivery Method Room Air Intake Visit Reasons: dyspnea Allergies No Known Allergies (No Known Allergies*) Allergy (Unverified 11/27/24 09:54) HPI HPI dyspnea: Details: John is a pleasant 59 year old male, never smoker, with underlying asthma, severe BEULAH on CPAP and nasal polyps. He has been using Dulera BID with suboptimal effect continuing to report dyspnea and wheezing, not using albuterol. At the last visit, we had reviewed titration study which recommended changes to CPAP pressures and recommended BiPAP however patient has not heard back from [employer]. The patient has a history of obstructive sleep apnea, managed with CPAP therapy. However, there have been issues with the machine settings and data retrieval since July, despite consistent use. The patient reports occasional discomfort due to excessive moisture and mask leakage, which may affect compliance. Previously chest CT noted pulmonary nodules and presents to review chest CT results. He denies any visits to urgent care or hospitalizations related to respiratory distress since the last visit. [facility] Social History Patient Tobacco Use Status: Never used Tobacco Review of Systems Const Denies excessive sweating, Denies fever(s) and Denies night sweats ENT Reports Normal hearing present Card Denies chest pain, Denies chest pain at rest, Denies chest pain with activity, Denies claudication, Denies leg edema, Reports dyspnea on exertion, Denies orthopnea and Denies paroxysmal nocturnal dyspnea Resp Denies change in phlegm color, Denies chest congestion, Denies hemoptysis, Denies pain on inspiration, Denies pain with cough, Reports dyspnea on exertion, Denies stridor and Reports wheezing Musc Denies myalgias Neuro Reports Normal hearing present Endo Denies excessive sweating Aller/Immun Reports wheezing Physical Exam Vital Signs: Last Vital Signs Pulse 55 11/27/24 09:49 BP 108/74 11/27/24 09:49 Pulse Ox 96 11/27/24 09:49 Oxygen Delivery Method Room Air 11/27/24 09:49 BMI result Body Mass Index 34.2 Const General: cooperative, healthy appearing, comfortable, no acute distress, well developed and alert Nutritional Appearance: obese Orientation/consciousness: patient oriented x3 Limitations: no limitations HEENT Head: Yes normal to inspection, Yes normocephalic and Yes atraumatic Ears: hearing grossly normal bilaterally and external ears normal Eyes General: appearance normal, both eyes and all related structures Eyelids: Yes eyelids normal Sclerae: sclerae normal EOM: EOMs intact bilaterally Neck Neck: Yes normal visual inspection and Yes no lymphadenopathy Lymphatic: no lymphadenopathy noted Chest Chest palpation & inspection: normal inspection of the chest Resp Effort & Inspection: normal respiratory effort, able to speak in complete sentences, no audible wheezes, no cough, no stridor, not tachypneic, no tripod positioning and no use of accessory muscles Auscultation: clear to auscultation bilaterally Cardio Jugular venous distension: no JVD Rate: regular rate Rhythm: regular rhythm Skin Other: warm, dry General skin exam: no rashes or lesions noted Neuro General: patient oriented x3 Cranial nerves: Yes Normal hearing present Cognition (Neuro): normal cognition Gait exam (Neuro): Normal gait present Extrem General: Yes normal to inspection, Yes capillary refill normal, Yes no clubbing, cyanosis or edema and Yes no pedal edema Psych Appearance: grossly normal and well kempt Speech and movement: Normal speech and movement present and Clear speech present Affect: normal affect Attitude: cooperative Thought process: Normal thought process present Thought content: Normal thought content present Insight: Good insight present (Psych) Judgement: Good judgement present (Psych) Results Reviewed Results Reviewed: [address] [address] [address] Scan Report Signed Patient: John Dean MR#: [id number] : 1965 Acct:[id number] Age/Sex: 59 / M ADM Date: 11/19/24 Loc: HO.CT Attending Dr: Sandi Tabor NP Ordering Physician: Sandi Tabor NP Date of Service: 11/19/24 Procedure(s): CT chest wo IV con Accession Number(s): [id number] cc: TREVOR KIRKLAND MD; Sandi Tabor NP~ Report Number: [id number]: Total DLP = 265.00 mGy-cm EXAMINATION: CT CHEST WITHOUT CONTRAST CLINICAL INFORMATION: Other nonspecific abnormal finding of lung field. Follow-up nodules. COMPARISON: 12/05/2023, 06/07/2023. TECHNIQUE: Multidetector volumetric CT imaging of the chest was done. Axial MIP volume rendering provided. Sagittal and coronal reformatted images were obtained. This CT examination was performed using dose optimization techniques as appropriate, variously including the following: *Automated exposure control *Adjustment of mA and/or kV according to patient size (this includes techniques or standardized protocols for targeted exams where dose is matched to indication/reason for exam; i.e. extremities or head) *Use of iterative reconstruction technique FINDINGS: NODULES: 3 mm right middle lobe nodule is stable and unchanged, with pleural tag and likely an intrapulmonary lymph node (series 4, image 68). 7 mm right lower lobe nodule abutting the major fissure is stable and unchanged and most likely an intrapulmonary lymph node (series 4, image 81). No new or enlarging pulmonary nodule. LUNGS: The lungs are clear bilaterally. There is no interstitial abnormality or abnormal opacity. No consolidation. Small airways are normal. Central airways are patent. No pleural effusion or pneumothorax. MEDIASTINUM: Normal-appearing thyroid. No lymphadenopathy or mass within the mediastinum. Aorta is mildly calcified but normal in caliber and course. Main pulmonary artery is normal. The heart size is normal. There is no pericardial effusion. The esophagus is normal in appearance. There is likely a tiny type I hiatus hernia. CORONARY ARTERY CALCIFICATION: Mild three-vessel coronary calcification. AXILLA: No lymphadenopathy or mass. UPPER ABDOMEN: There is diffuse fatty infiltration of the liver. There is no suspicious liver lesion. There is focal fatty sparing peripherally in segment 8. There is mild diverticulosis of the imaged colon. Remainder of the imaged upper abdominal contents appear normal. OSSEOUS STRUCTURES: No suspicious lytic or blastic bone lesions. No acute finding. CT/CT chest wo IV con IMPRESSION: 1. A few stable pulmonary nodules measuring up to 7 mm, most consistent with intrapulmonary lymph nodes. These are benign. One-year follow-up only recommended in a high-risk patient. No new or enlarging pulmonary nodule. 2. The lungs are clear without evidence of active disease. 3. Fatty infiltration of the liver. 4. Additional ancillary findings as discussed in the body of the report. Electronically signed by: Vinicius Donald MD 11/19/2024 10:07 AM EDT RP Dictated By: Vinicius Donald MD Signed By: <Electronically signed by Vinicius Donald MD in OV> 11/19/24 1007 DD/ TD/TT: 11/19/24 0954 Baking Assistant: Assessment & Plan Assessment & Plan (1) Asthma: Code(s): J45.909 - Unspecified asthma, uncomplicated Category: Medical (2) Dyspnea: Code(s): R06.00 - Dyspnea, unspecified Category: Medical (3) Obstructive sleep apnea: Code(s): G47.33 - Obstructive sleep apnea (adult) (pediatric) Category: Medical (4) Multiple pulmonary nodules: Code(s): R91.8 - Other nonspecific abnormal finding of lung field Category: Medical Plan Prior chest CT revealed pulmonary nodule <7mm in size. Reviewed repeat chest CT which revealed stable nodules, will repeat in one year to assess stability. If no changes, then no further need for follow up. John continues to report poor asthma control. Will switch Dulera to Trelegy and send for RAST to assess for an allergic component. Will also refill albuterol. Discussed with the patient the management of his obstructive sleep apnea, including contacting [employer] for machine issues and obtaining compliance report as well as updated pressure settings. All questions were answered and patient is in agreement of plan. Will follow up in 6-8 weeks or sooner if needed. Orders: Orders Resp Allergy Profile Region I Today Z91.09 - Other allergy status, other than to drugs and biological substances Complete Blood Count Auto Diff Today Z91.09 - Other allergy status, other than to drugs and biological substances Immunoglobulin E Today Z91.09 - Other allergy status, other than to drugs and biological substances Medications: New oynneqlbniz-dkvrvxinl-hqcngajs 200-62.5-25 mcg (Trelegy Ellipta) 1 inh inhalation DAILY 60 ea 3RF Refilled albuterol sulfate 90 mcg/actuation 2 puffs inhalation Q6H PRN 1 ea 3RF shortness of breath or wheezing Discontinued mometasone-formoterol 200-5 mcg/actuation (Dulera) Discontinued Reason: Patient Completed Course 2 puffs inhalation BID 13 grams 6RF Coding Level of Care Code Est Pt Level 4 (30540) Diagnoses Asthma J45.909 Dyspnea R06.00 Obstructive sleep apnea G47.33 Multiple pulmonary nodules R91.8
--- OUTSIDE RECORDS SUMMARY | 2024-11-27 10:33 | XMS_ITS | Clinical Summary ---
Author Organization [facility] Address [address] [place] [address] Care Team Providers Care Dandy Tender Name Role Phone Russel Macias MD Primary [...] 02/12/2022 Active COVID-19 At Home Antigen Test ([employer] COVID-19 Ag Home Test) Kit 8 0 [...] Tdap) 08/22/2018 08/21/2018 COVID-19 Vaccine (4 - 2024-2 6 season) 2024 04/04/2021, 06/16/2020, 05/26/2020 Influenza (#1) 2024 RSV [...] this topic Zoster (Zostavax) Discontinued Care Teams Dandy Tender Relationship Specialty Start Date End Date Russel Macias MD [address] [facility] [address] [place] [address] PCP - General 10/29/22
--- OUTSIDE RECORDS SUMMARY | 2024-11-27 10:33 | XMS_ITS | Clinical Summary ---
Author Organization [facility] Address [address] [place] [address] Phone Care Team Providers Care Multimedia Programmer Name Role Phone Glenna Mccormick MD Primary Care Provider [phone] Allergies No known active allergies Medications albuterol [...] Description 11/13/2024 10:21 AM EDT Anesthesia Event [facility] Endoscopy [address] [place] [phone] Sidney Moralez MD Pierce, Trudy A, CRNA 11/13/2024 9:20 AM EDT - 11/13/2024 11:59 PM EDT Hospital Encounter [facility] Endoscopy [address] [place] [phone] Abraham Schmid MD Pierce, Trudy A, CRNA Spencer, Mark A, MD Loose stools; Family hx of colon cancer; History of colon polyps Discharge Disposition: Home or Self Care 11/05/2024 9:20 AM EDT Consult Gastroenterology - [address] [phone] Oriana Valdes PA Colon cancer screening (Primary Dx); Loose stools 11/05/2024 Telephone Gastroenterology - [address] [phone] Abraham Schmid MD 09/15/2024 Telephone Gastroenterology - [address] [phone] Abraham Schmid MD from Last 3 Months [...] - Risk 60-74 years 1-dose series) 2023 Depression Screening 03/25/2024 COVID-19 Vaccine (4 - 2024-2 6 season) 2024 04/04/2021, 06/16/2020, 05/26/2020 Influenza Vaccine (#1) 2024 Colorectal Cancer Screening: [...] Months Results * COLONOSCOPY Anesthesia - MAC; [facility] END[facility]COPY (11/13/2024 10:45 AM EDT) Only the most recent of2 resultswithin the time period is included. Anatomical Region Laterality Modality Other 11/13/2024 10:2 7 AM EDT Impressions 11/13/2024 10:48 AM EDT - One 10 mm polyp in the cecum, removed with a hot snare. Resected and retrieved. Clips were placed. Clip research animal attendant: [employer]. - Diverticulosis in the sigmoid colon. - The examination was otherwise normal on direct and retroflexion views. Recommendation: - Await pathology results. - Repeat colonoscopy in 2 years for surveillance. Narrative 11/13/2024 10:48 AM EDT [facility] GI Patient Name: John Dean Procedure [...] two hemostatic clips were successfully placed. Clip research animal attendant: [employer]. There was no bleeding at the end of the procedure. Multiple diverticula were found in the sigmoid colon. The exam was otherwise without abnormality on direct and retroflexion views. Procedure Code(s): --- Professional --- 42428, Colonoscopy, flexible; with removal of tumor(s), polyp(s), or other lesion(s) by snare technique Diagnosis Code(s): --- Professional --- Z80.0, Family history of malignant neoplasm of digestive organs D12.0, Benign neoplasm of cecum K57.30, Diverticulosis of large intestine without perforation or abscess without bleeding Z86.010, Personal history of colonic polyps CPT copyright 2020 [employer]. All rights reserved. The codes documented in this report are preliminary and upon maintenance associate review may be revised to meet current compliance requirements. Abraham Schmid MD 11/13/2024 10:48:06 AM This report has been signed electronically.Abraham Schmid MD Number of Addenda: 0 Note Initiated On: 11/13/2024 10:27 AM Scope In: Scope Out: Endoscopy Department at [facility] - [address] [place] [phone] Procedure Note Abraham Schmid MD - 11/13/2024 [facility] GI Patient Name: John Dean Procedure [...] polypectomy, two hemostaticclips were successfully placed. Clip research animal attendant: [employer]. There was no bleeding at the end of the procedure. Multiple diverticula were found in the sigmoidcolon. The exam was otherwise without abnormality ondirect and retroflexion views. Procedure Code(s): --- Professional --- 91235, Colonoscopy, flexible; with removal of tumor(s), polyp(s), or other lesion(s) by snare technique Diagnosis Code(s): --- Professional --- Z80.0, Family history of malignant neoplasm of digestive organs D12.0, Benign neoplasm of cecum K57.30, Diverticulosis of large intestine without perforation or abscess without bleeding Z86.010, Personal history of colonic polyps CPT copyright 2020 [employer]. All rights reserved. The codes documented in this report are preliminary and upon maintenance associate reviewmay be revised to meet current compliance requirements. Abraham Schmid MD 11/13/2024 10:48:06 AM This report has been signed electronically.Abraham Schmid MD Number of Addenda: 0 Note Initiated On: 11/13/2024 10:27 AM Scope In: Scope Out: Endoscopy Department at [facility] - [address] [place] [phone] IMPRESSION: - One 10 mm polyp in the cecum, removed with a hot snare. Resected and retrieved. Clips were placed.Clip research animal attendant: [employer]. - Diverticulosis in the sigmoid colon. - [...] plate is identified. 11/16/2024 10:47 AM EDT [facility] LAB Gross Description A. Large Intestine, [...] multiple levels. TS 11/16/2024 10:47 AM EDT [facility] Disclaimer Unless otherwise specified, all tissue is 10% NB formalin fixed and paraffin embedded. 11/16/2024 10:47 AM EDT [facility] Tissue Colon structure / Unknown 11/13/2024 10:35 AM EDT 11/13/2024 11:59 AM EDT Tissue specimen (specimen) Colon structure / Unknown 11/13/2024 10:35 AM EDT 11/13/2024 11:59 AM EDT Abraham Schmid MD LAB PATHOLOGY ORDERABLES Fi nal Result [facility] [address] [place] [address], from Last 3 Months Insurance [facility] Care Teams Multimedia Programmer Relationship Specialty Start Date End Date Glenna Mccormick MD [address] [place] [address] PCP - General Internal Medicine 11/13/24
--- OUTSIDE RECORDS SUMMARY | 2024-11-27 10:33 | XMS_ITS | Clinical Summary ---
Author Organization [employer] [facility] Address [address] [place] [address] Care Team Providers Care Law Firm Consultant Name Role Phone Unknown, Primary Care Provider [...] (1 o f 2) 07/12/2013 COVID-19 Vaccine (2024-2 6 season) 2024 04/04/2021, 06/16/2020, 05/26/2020 Influenza [...] age to complete this topic Care Teams Law Firm Consultant Relationship Specialty Start Date End Date Unknown, PCP - General 07/18/23
== END 2024-11-27 10:28 | disposition home or self-care (01) ==
LOC: HO.HPSW 09:47
PROVIDERS: PCP Internal Medicine; Visit Provider Nurse Practitioner Family
DX: J45.909 Unspecified asthma, uncomplicated (principal); R06.00 Dyspnea, unspecified; G47.33 Obstructive sleep apnea (adult) (pediatric); R91.8 Other nonspecific abnormal finding of lung field
CPT/HCPCS: 99214

== ENCOUNTER 2024-11-27 09:46 | Outpatient (REF) | payer BC, SELFPAY ==
--- OUTSIDE RECORDS SUMMARY | 2024-11-27 11:48 | XMS_ITS | Encounter Summary ---
Author Organization [facility] Address [address] [place] [address] Care Team Providers Care Employee Relations Assistant Name Role Phone Wyatt Garcia MD Primary Care Provider Unav ailable Encounter Details Date Type Department Care Team Description 01/09/2022 Orders Only Cardio [facility] Diag Testing [address] [facility] [address] [place] [id number] Barry Mathis NP Chest tightness (Primary Dx); SOBOE (shortness of breath on exertion) Social History Tobacco Use Types Packs/Day Years Used Date Smoking Tobacco: Never Smokeless Tobacco: Never Alcohol Use Standard Drinks/Week Comments No 0 (1 standard drink = 0.6 oz pur e alcohol) Sex Assigned at Date Recorded Not on file COVID-19 Exposure Response Date Recorded In the last 10 days, have yo u been in contact with someone who was confirmed or suspected to have Coronavirus/COVID-19? No / Unsure 01/12/2022 8:06 AM EDT documented as of this encounter Plan of Treatment Not on file documented as of this encounter Results * CARDIOVASCULAR STRESS TEST (01/12/2022) Impressions [facility] - 01/12/2022 [facility] [address] [facility], [address], [place] [address] TEL: FAX: Name: John Dean Date of exam: 01/12/22 : 1965 Gender: Male Ordering provider: Barry Mathis NP PCP: Dr. Wyatt Garcia Blood pressure 100/70, pulse 63, height 6' (1.829 m), weight 240 lb (108.9 kg), SpO2 97 %. Body mass index is 32.55 kg/m . TEST TYPE: Exercise Stress Test Performed by: Shira Pinzon NP INDICATION/HISTORY: Shortness of breath with exertion CARDIAC RISK FACTORS: NONE PRIOR CARDIAC EVENTS: None STRESS TEST: NO beta blockers/calcium channel blockers/nitrates. The patient exercised for 4 minutes and 51 seconds on a Standard Anthony protocol achieving a peak heart rate of 142 BPM which is 87 % MPHR for the patient's age. Symptoms: Dyspnea Functional Capacity: Below average for age and gender ( 7.0 METS). Hemodynamic response: Physiologic Resting BP: 100/70 with a HR of: 71. Maximum BP: 128/68 with HR of: 142. O2 sat: 99% throughout testing Baseline ECG: Normal sinus rhythm Stress ECG: No diagnostic ECG changes for ischemia Arrhythmias: No arrhythmias noted Test terminated due to: Dyspnea IMPRESSION: Negative exercise stress test. The patient exercised for 4 minutes and 51 seconds on a Standard Anthony protocol achieving a peak heart rate of 142 BPM which is 87 % MPHR for the patient's age. NO chest pain and no ischemic ECG changes. No arrhythmias. Electronically Signed By: Shira Pinzon NP 01/12/2022 9:48 AM Electronically Signed By: Stephanie Mueller MD 01/15/2022 12:56 PM Barry Mathis NP CARDIOLOGY [facility] documented in this encounter Visit Diagnoses Diagnosis Chest tightness- Primary Other chest pain SOBOE (shortness of breath on exertion) Shortness of breath Chest tightness Other chest pain SOBOE (shortness of breath on exertion) Shortness of breath documented in this encounter Care Teams Employee Relations Assistant Relationship Specialty Start Date End Date Wyatt Garcia MD PCP - General Internal Medicine 12/17/17 documented as of this encounter
--- OUTSIDE RECORDS SUMMARY | 2024-11-27 11:48 | XMS_ITS | Encounter Summary ---
Author Organization [facility] Address [address] [place] [address] Care Team Providers Care Vein Pumper Name Role Phone Wyatt Garcia MD Primary Care Provider Unav ailable Encounter Details Date Type Department Care Team Description 01/21/2018 Orders Only Medical Records [address] [place] [id number] Kwan Yee MD Social History Tobacco Use Types Packs/Day Years Used Date Smoking Tobacco: Never Smokeless Tobacco: Never Alcohol Use Standard Drinks/Week Comments No 0 (1 standard drink = 0.6 oz pur e alcohol) Sex Assigned at Date Recorded Not on file documented as of this encounter Plan of Treatment Not on file documented as of this encounter Procedures Procedure Name Priority Date/Time Associated Diagnosis Comments OUTSIDE ECHO Routine 01/16/2018 documented in this encounter Results * OUTSIDE ECHO (01/16/2018) Kwan Yee MD CARDIOLOGY documented in this encounter Visit Diagnoses Not on filedocumented in this encounter Care Teams Vein Pumper Relationship Specialty Start Date End Date Wyatt Garcia MD PCP - General Internal Medicine 12/17/17 documented as of this encounter
--- OUTSIDE RECORDS SUMMARY | 2024-11-27 11:48 | XMS_ITS | Encounter Summary ---
Author Organization [facility] Address [address] [place] [address] Care Team Providers Care Staffing Manager Name Role Phone Wyatt Garcia MD Primary Care Provider Unav ailable Wyatt Garcia MD Primary Care Provider Unav ailable Encounter Details Date Type Department Care Team Description 09/04/2012 [facility] Medical Records [address] [place] [id number] Abstract, Provider Social History Tobacco Use Types Packs/Day Years Used Date Smoking Tobacco: Never Assessed Sex Assigned at Date Recorded Not on file documented as of this encounter Plan of Treatment Not on file documented as of this encounter Visit Diagnoses Not on filedocumented in this encounter Care Teams Staffing Manager Relationship Specialty Start Date End Date Wyatt Garcia MD PCP - General Internal Medicine 12/17/17 Wyatt Garcia MD PCP - General 09/05/12 12/16/17 documented as of this encounter
--- OUTSIDE RECORDS SUMMARY | 2024-11-27 11:48 | XMS_ITS | Encounter Summary ---
Author Organization [facility] Address [address] [place] [address] Care Team Providers Care Fire Tower Keeper Name Role Phone Wyatt Garcia MD Primary Care Provider Unav ailable Encounter Details Date Type Department Care Team Description 01/22/2022 [facility] Medical Records [address] [place] [id number] [place] [address] Social History Tobacco Use Types Packs/Day Years [...] on filedocumented in this encounter Care Teams Fire Tower Keeper Relationship Specialty Start Date End Date Wyatt Garcia MD PCP - General Internal Medicine 12/17/17 documented as of this encounter
--- OUTSIDE RECORDS SUMMARY | 2024-11-27 11:48 | XMS_ITS | Encounter Summary ---
Author Organization [facility] Address [address] [place] [address] Care Team Providers Care Cnc Router Operator Name Role Phone Wyatt Garcia MD Primary Care Provider Unav ailable Wyatt Garcia MD Primary Care Provider Unav ailable Encounter Details Date Type Department Care Team Description 09/05/2012 [facility] Medical Records [address] [place] [address] Mya Mazariegos NP Social History Tobacco Use Types Packs/Day Years Used Date Smoking Tobacco: Never Assessed Sex Assigned at Date Recorded Not on file documented as of this encounter Plan of Treatment Not on file documented as of this encounter Procedures Procedure Name Priority Date/Time Associated Diagnosis Comments OUTSIDE STRESS TEST Routine 09/05/2012 documented in this encounter Results * OUTSIDE STRESS TEST (09/05/2012) Provider Default CARDIOLOGY documented in this encounter Visit Diagnoses Not on filedocumented in this encounter Care Teams Cnc Router Operator Relationship Specialty Start Date End Date Wyatt Garcia MD PCP - General Internal Medicine 12/17/17 Wyatt Garcia MD PCP - General 09/05/12 12/16/17 documented as of this encounter
[2024-11-27 14:22] LABS: MANUAL DIFF FLAG NO
[2024-11-27 14:28] LABS: Hematocrit 43.2 % (42.0-52.0); Hemoglobin 15.1 g/dl (14.0-18.0); Imm Gran Abs Auto 0.01 X10*3/uL (0.00-0.03); Imm Gran Pct Auto 0.1 % (0.0-0.4); Lymphocytes Absolute Auto 1.4 X10*3/uL (1.2-4.9); Mean Corpuscular HGB Conc 35.0 g/dl (31.0-36.0); Mean Corpuscular Hemoglobin 31.9 pg (27.0-33.0); Mean Corpuscular Volume 91.1 fL (80.0-98.0); NRBC Abs Auto 0.000 X10*3/uL (0.0-0.012); NRBC Pct Auto 0.0 /100WBC (0.0-0.2); Platelet Count 191 X10*3/uL (160-400); Red Blood Count 4.74 X10*6/uL (4.60-5.80); White Blood Count 7.0 X10*3/uL (4.8-10.8)
[2024-11-30 17:59] LABS: Class Alternaria alternata 0; Class Aspergillus fumigatus 0; Class Bermuda Grass 0; Class Birch 2; Class Cat Dander 0/1; Class Cladosporium herbarum 0; Class Cockroach 0/1; Class Common Ragweed 0; Class Cottonwood 0; Class Derm. pterony 0/1; Class Dermatophagoides farinae 0/1; Class Dog Dander 0; Class Elm 0; Class Maple Box Elder 0; Class Mountain Cedar 0; Class Mouse Urine Protein 0; Class Mugwort 0; Class Oak 0; Class Penicillium crysogenum 0; Class Rough Pigweed 0; Class Sheep Sorrel 0; Class Sycamore 0; Class Timothy Grass 0; Class Walnut Tree 0; Class White Ash 0; Class White Mulberry 0; D002 - IgE D farinae 0.15 kU/L; E001 - IgE Cat Dander 0.26 kU/L; E005 - IgE Dog Dander <0.10 kU/L; G006 - IgE Timothy Grass <0.10 kU/L; I006-IgE Cockroach, German 0.17 kU/L; M002 - IgE Cladosporium herbar <0.10 kU/L; M003 - IgE Aspergillus fumigat <0.10 kU/L; M006 - IgE Alternaria alternat <0.10 kU/L; T001 IgE Maple/Box Elder <0.10 kU/L; T006 - IgE Cedar, Mountain <0.10 kU/L; T007 - IgE Oak, White <0.10 kU/L; T008 IgE Elm, American <0.10 kU/L; T010 - IgE Walnut <0.10 kU/L; T011 - IgE Maple Leaf Sycamore <0.10 kU/L; T014 - IgE Cottonwood <0.10 kU/L; T015 - IgE Ash, White <0.10 kU/L; T070 - IgE White Mulberry <0.10 kU/L; W001 - IgE Ragweed, Short <0.10 kU/L; W006 - IgE Mugwort <0.10 kU/L; W014 IgE Pigweed, Common <0.10 kU/L; W018 IgE Sheep Sorrel <0.10 kU/L
== END 2024-11-27 09:47 | disposition home or self-care (01) ==
LOC: HO.WFDLDS 09:46
PROVIDERS: PCP Internal Medicine; Visit Provider Nurse Practitioner Family
DX: J45.909 Unspecified asthma, uncomplicated (principal); R91.8 Other nonspecific abnormal finding of lung field; G47.33 Obstructive sleep apnea (adult) (pediatric); Z91.09 Other allergy status, other than to drugs and biological substances; Z79.899 Other long term (current) drug therapy
CPT/HCPCS: 36415; 82785; 85025; 86003

== ENCOUNTER 2025-01-29 10:24 | Outpatient (AMB) | payer BC, SELFPAY ==
--- NOTE | 2025-01-29 10:26 | MHC.OFFVIS ---
Vital Signs 01/29/25 10:27 Height 6 ft Weight 255 lb 8 oz BMI 34.6 BP 114/68 Blood Pressure Location Rt brachial Position Sitting Pulse 58 Pulse Source Pulse Oximeter Pulse Oximetry (%) 95 Oxygen Delivery Method Room Air Intake Visit Reasons: dyspnea Allergies No Known Allergies (No Known Allergies*) Allergy (Unverified 01/29/25 10:30) HPI HPI dyspnea: Details: John is a pleasant 59 year old male, never smoker, with underlying asthma, severe BEULAH on CPAP and nasal polyps. He had been using Dulera BID with suboptimal effect continuing to report dyspnea and wheezing, and was switched to Trelegy. He reports significant improvement in dyspnea, no longer reports wheezing and rarely uses albuterol MDI. He does report occasional dry cough after the use of Trelegy however is not interested in switching to a non dry powder inhaler. He denies any visits to urgent care or hospitalizations related to respiratory distress since the last visit. Reviewed home sleep study from April 2023 which revealed moderate BEULAH and mild nocturnal hypoxemia. He states that he has not used his CPAP therapy in quite some time and was previously not consistent with use. We had discussed switching to BiPAP therapy recommended from in-lab titration study however this was deferred due to compliance. [facility] Social History Patient Tobacco Use Status: Never used Tobacco Review of Systems Const Denies chills, Denies excessive sweating, Denies fever(s), Denies headache(s) and Denies night sweats Eyes Denies dry eyes, Denies irritation and Denies itchy eyes ENT Reports Normal hearing present, Denies headache(s), Denies nasal congestion, Denies nasal discharge, Denies post nasal drip and Denies sore throat Card Denies chest pain, Denies chest pain at rest, Denies chest pain with activity, Denies claudication, Denies leg edema, Denies dyspnea, Denies dyspnea on exertion, Denies orthopnea and Denies paroxysmal nocturnal dyspnea Resp Denies chest congestion, Denies cough, Denies excessive phlegm production, Denies pain on inspiration, Denies pain with cough, Denies dyspnea, Denies dyspnea on exertion, Denies stridor and Denies wheezing Musc Denies myalgias Neuro Reports Normal hearing present and Denies headache(s) Endo Denies excessive sweating Kyle/Lymph Denies lymphadenopathy Aller/Immun Denies itchy eyes, Denies seasonal rhinorrhea and Denies wheezing Physical Exam Vital Signs: Last Vital Signs Pulse 58 01/29/25 10:27 BP 114/68 01/29/25 10:27 Pulse Ox 95 01/29/25 10:27 Oxygen Delivery Method Room Air 01/29/25 10:27 BMI result Body Mass Index 34.6 Const General: cooperative, healthy appearing, comfortable, no acute distress, well developed and alert Nutritional Appearance: obese Orientation/consciousness: patient oriented x3 Limitations: no limitations HEENT Head: Yes normal to inspection, Yes normocephalic and Yes atraumatic Ears: hearing grossly normal bilaterally and external ears normal Eyes General: appearance normal, both eyes and all related structures Eyelids: Yes eyelids normal Sclerae: sclerae normal EOM: EOMs intact bilaterally Neck Neck: Yes normal visual inspection and Yes no lymphadenopathy Lymphatic: no lymphadenopathy noted Chest Chest palpation & inspection: normal inspection of the chest Resp Effort & Inspection: normal respiratory effort, able to speak in complete sentences, no audible wheezes, no cough, no stridor, not tachypneic, no tripod positioning and no use of accessory muscles Auscultation: diminished lung sounds Cardio Jugular venous distension: no JVD Rate: regular rate Rhythm: regular rhythm Skin Other: warm, dry General skin exam: no rashes or lesions noted Neuro General: patient oriented x3 Cranial nerves: Yes Normal hearing present Cognition (Neuro): normal cognition Gait exam (Neuro): Normal gait present Extrem General: Yes normal to inspection, Yes capillary refill normal, Yes no clubbing, cyanosis or edema and Yes no pedal edema Psych Appearance: grossly normal and well kempt Speech and movement: Normal speech and movement present and Clear speech present Affect: normal affect Attitude: cooperative Thought process: Normal thought process present Thought content: Normal thought content present Insight: Good insight present (Psych) Judgement: Good judgement present (Psych) Assessment & Plan Assessment & Plan (1) Asthma: Code(s): J45.909 - Unspecified asthma, uncomplicated Category: Medical (2) Dyspnea: Code(s): R06.00 - Dyspnea, unspecified Category: Medical (3) Obstructive sleep apnea: Code(s): G47.33 - Obstructive sleep apnea (adult) (pediatric) Category: Medical (4) Multiple pulmonary nodules: Code(s): R91.8 - Other nonspecific abnormal finding of lung field Category: Medical Plan At this time John reports good control of respiratory symptoms on current regimen, advised to continue Trelegy and albuterol MDI. He is aware to call if symptoms change. We discussed importance of compliance with CPAP therapy and recommendations for BiPAP therapy based on last in-lab titration study. Because it was performed April 2023 he would need a new sleep study in order to reestablish need for BiPAP therapy. At this time he would like to defer continued use CPAP therapy. He is agreeable to bring in device at the next visit to review compliance as we are unable to obtain compliance report via air view. We also discussed if he is noncompliant with CPAP therapy there was note of mild nocturnal hypoxemia which he would qualify for nocturnal supplemental oxygen but he declined at this time. Chest CT 10/2024 which revealed stable nodules including 7 mm RLL, will repeat in one year to assess stability, order previously placed. All questions were answered and patient is in agreement of plan. Will follow up in 3 months or sooner if needed. Coding Level of Care Code Est Pt Level 4 (63604) Diagnoses Asthma J45.909 Dyspnea R06.00 Obstructive sleep apnea G47.33 Multiple pulmonary nodules R91.8
[2025-01-29 10:27] VITALS: BP 114/68; PULSE 58; O2SAT 95; BMI 34.6
--- OUTSIDE RECORDS SUMMARY | 2025-01-29 12:18 | XMS_ITS | Clinical Summary ---
Author Organization [facility] Address [address] [place] [address] Care Team Providers Care Regrind Mill Operator Name Role Phone Unknown, Primary Care Provider [...] age to complete this topic Care Teams Regrind Mill Operator Relationship Specialty Start Date End Date Unknown, PCP - General 07/18/23
--- OUTSIDE RECORDS SUMMARY | 2025-01-29 12:18 | XMS_ITS | Clinical Summary ---
Author Organization [facility] Address [address] [place] [address] Care Team Providers Care Engine Testing Supervisor Name Role Phone Russel Macias MD Primary Care Provider [phone] Medications Levothyroxine Sodium (SYNTHROID, LEVOTHROID) 50 MCG [...] 02/12/2022 Active COVID-19 At Home Antigen Test (ORVIBOaxNOW COVID-19 Ag Home Test) Kit 8 0 [...] this topic Zoster (Zostavax) Discontinued Care Teams Engine Testing Supervisor Relationship Specialty Start Date End Date Russel Macias MD [address] [facility] [address] [place] [address] PCP - General 10/29/22
--- OUTSIDE RECORDS SUMMARY | 2025-01-29 12:18 | XMS_ITS | Clinical Summary ---
Author Organization [facility] [address] Address [address] [place] [address] Phone Care Team Providers Care [employer] Attendant Name Role Phone Glenna Mccormick MD Primary Care Provider [phone] Allergies No known active allergies Medications albuterol [...] 0.4 mg 24 hr capsule 5 Active sodium,potassiu m,mag sulfates (Suprep Bowel Prep Kit) 17.5-3.13-1.6 gram recon soln bowel prep kit oral solution Take 177ML by mouth for 2 doses. SEE INSTRUCTIONS PROVIDED BY OFFICE. 1 kit 5 Active budesonide-form oteroL (SYMBICORT) 160-4.5 mcg/actuation inhaler Inhale 1 puff by mouth 2 times daily. 2 Active Active Problems Problem Noted Date Diagnosed Date Colon polyps 11/05/2024 GERD (gastroesophageal reflux disease) 9 Asthma 12/17/2017 Cough 12/17/2017 Depression 12/17/2017 Hypothyroidism 12/17/2017 Encounters Date Type Department Care Team Description 11/13/2024 10:21 AM EDT Anesthesia Event [facility] Endoscopy [address] [place] [phone] Sidney Moralez MD Pierce, Trudy A, CRNA 11/13/2024 9:20 AM EDT - 11/13/2024 11:59 PM EDT Hospital Encounter [facility] [address] [place] [phone] Abraham Schmid MD Pierce, Trudy A, CRNA Spencer, Mark A, MD Loose stools; Family hx of colon cancer; History of colon polyps Discharge Disposition: Home or Self Care 11/05/2024 9:20 AM EDT Consult Gastroenterology - [address] [phone] Oriana Valdes PA Colon cancer screening (Primary Dx); Loose stools 11/05/2024 Telephone Gastroenterology - [address] [phone] Abraham Schmid MD from Last 3 Months Immunizations Immunization Administration Dates Next Due Pfizer SARS-CoV-2 COVID-19, [...] Safety Answer Date Record ed Physical Abuse Unrecognized value 11/13/2024 Verbal Abuse Unrecognized value 11/13/2024 Sex and Gender Information Value Date [...] Years (1 of 2 - PCV) 07/12/1982 RSV Immunization Adult Patients (1 - Risk 50-74 years 1-dose series) 07/12/2013 Zoster Vaccines (1 of 2) 07/12/2013 Cholesterol Screening (Lipid Panel) 02/25/2022 HIV Screening 02/25/2022 Hepatitis C Screening 02/25/2022 Social Influencers of Health Screening 02/25/2022 Depression Screening 03/25/2024 COVID-19 Vaccine (4 - [...] Months Results * COLONOSCOPY Anesthesia - MAC; [facility] ENDOSCOPY (11/13/2024 10:45 AM EDT) Only the most recent of2 resultswithin the time period is included. Anatomical Region Laterality Modality Other 11/13/2024 10:2 7 AM EDT Impressions 11/13/2024 10:48 AM EDT - One 10 mm polyp in the cecum, removed with a hot snare. Resected and retrieved. Clips were placed. Clip jewel staker: [employer]. - Diverticulosis in the sigmoid colon. - The examination was otherwise normal on direct and retroflexion views. Recommendation: - Await pathology results. - Repeat colonoscopy in 2 years for surveillance. Narrative 11/13/2024 10:48 AM EDT [facility] GI Patient Name: John Dean Procedure Date: 11/13/2024 10:27 AM Date of : 1965 Age: 59 Room: ROOM 14 Gender: Male Note Status: Finalized Attending MD: Abrahma Schmid MD, Procedure Date No Time: 11/13/2024 [...] two hemostatic clips were successfully placed. Clip jewel staker: [employer]. There was no bleeding at the end of the procedure. Multiple diverticula were found in the sigmoid colon. The exam was otherwise without abnormality on direct and retroflexion views. Procedure Code(s): --- Professional --- 87929, Colonoscopy, flexible; with removal of tumor(s), polyp(s), or other lesion(s) by snare technique Diagnosis Code(s): --- Professional --- Z80.0, Family history of malignant neoplasm of digestive organs D12.0, Benign neoplasm of cecum K57.30, Diverticulosis of large intestine without perforation or abscess without bleeding Z86.010, Personal history of colonic polyps CPT copyright 2020 [employer]. All rights reserved. The codes documented in this report are preliminary and upon outside sales account executive review may be revised to meet current compliance requirements. Abraham Schmid MD 11/13/2024 10:48:06 AM This report has been signed electronically.Abraham Schmid MD Number of Addenda: 0 Note Initiated On: 11/13/2024 10:27 AM Scope In: Scope Out: Endoscopy Department at [facility] - [address] [place] [phone] Procedure Note Abraham Schmid MD - 11/13/2024 [facility] GI Patient Name: John Dean [...] polypectomy, two hemostaticclips were successfully placed. Clip jewel staker: [employer]. There was no bleeding at the end of the procedure. Multiple diverticula were found in the sigmoidcolon. The exam was otherwise without abnormality ondirect and retroflexion views. Procedure Code(s): --- Professional --- 60493, Colonoscopy, flexible; with removal of tumor(s), polyp(s), or other lesion(s) by snare technique Diagnosis Code(s): --- Professional --- Z80.0, Family history of malignant neoplasm of digestive organs D12.0, Benign neoplasm of cecum K57.30, Diverticulosis of large intestine without perforation or abscess without bleeding Z86.010, Personal history of colonic polyps CPT copyright 2020 [employer]. All rights reserved. The codes documented in this report are preliminary and upon outside sales account executive reviewmay be revised to meet current compliance requirements. Abraham Schmid MD 11/13/2024 10:48:06 AM This report has been signed electronically.Abraham Schmid MD Number of Addenda: 0 Note Initiated On: 11/13/2024 10:27 AM Scope In: Scope Out: Endoscopy Department at [facility] - [address] [place] [phone] IMPRESSION: - One 10 mm polyp in the cecum, removed with a hot snare. Resected and retrieved. Clips were placed.Clip jewel staker: [employer]. - Diverticulosis in the sigmoid colon. - [...] plate is identified. 11/16/2024 10:47 AM EDT [facility] ([facility]) [facility] Gross Description A. Large Intestine, [...] multiple levels. TS 11/16/2024 10:47 AM EDT [facility] Disclaimer Unless otherwise specified, all tissue is 10% NB formalin fixed and paraffin embedded. 11/16/2024 10:47 AM EDT [facility] Tissue Colon structure / Unknown 11/13/2024 10:35 AM EDT 11/13/2024 11:59 AM EDT Tissue specimen (specimen) Colon structure / Unknown 11/13/2024 10:35 AM EDT 11/13/2024 11:59 AM EDT us Abraham Schmid MD LAB PATHOLOGY ORDERABLES Fi nal Result [facility] [address] [place] [address], from Last 3 Months Insurance [facility] Care Teams [employer] Attendant Relationship Specialty Start Date End Date Glenna Mccormick MD [address] [place] [address] PCP - General Internal Medicine 11/13/24
== END 2025-01-29 10:51 | disposition home or self-care (01) ==
LOC: HO.HPSW 10:25
PROVIDERS: PCP Internal Medicine; Visit Provider Nurse Practitioner Family
DX: J45.909 Unspecified asthma, uncomplicated (principal); R06.00 Dyspnea, unspecified; G47.33 Obstructive sleep apnea (adult) (pediatric); R91.8 Other nonspecific abnormal finding of lung field
CPT/HCPCS: 99214